=== PATIENT | female | born 1955 | race Caucasian/White ===

== ENCOUNTER 2016-10-31 10:21 | Inpatient (IN) | payer OTHER ==
[~2016-10-31] VITALS: Ht 165.1 cm; Wt 72.6 kg
--- NOTE | 2016-10-31 10:27 | ED DYSPNEA/ASTHMA COMPLAINT ---
See Addendum History of Present Illness General Chief Complaint: Dyspnea (COPD, CHF, Other) Stated Complaint: BIBA SOB Source: patient, old records, EMS Exam Limitations: no limitations Vital Signs & Intake/Output Vital Signs & Intake/Output Vital Signs Date Time Temp Pulse Resp B/P Pulse O2 O2 Flow FiO2 Ox Delivery Rate 10/31 1319 91 Nasal 4.0L Cannula 10/31 1207 98.4 100 19 135/69 91 Nasal 5.0L Cannula 10/31 1145 90 Nasal 6.0L Cannula 10/31 1024 98.3 110 18 153/65 88 Room Air Allergies Coded Allergies: Penicillins (Severe, RASH 10/31/16) Triage Nurses Notes Reviewed? yes HPI: PATIENT PRESNETS WITH INCREASING SOB AND SHORT. PT DENIES CHEST PAIN OR TIGHTNESS. NO FEVERS OR CHILLS. POSITIVE ANOREXIA, NO NAUSEA OR VOMITING, PRODUCTIVE COUGH WITH YELLOW SPUTUM. PT HAS COPD AND CONTINUES TO SMOKE. PATIENT HAS NEVER BEEN ADMITTED FOR CODP IN THE PAST. PATIENT DENIES ANY PAIN. UPON EMS ARRIVAL PT HAD A RA SAT OF 89%. PT GIVEN A DOUNEB AND THEN AN ALBUTEROL NEB. Past History Travel History Traveled to [place] past 21 day No Medical History Any Pertinent Medical History? 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 No Review of Systems Review of Systems Constitutional: Reports: see HPI, weakness. EENTM: Reports: no symptoms. Respiratory: Reports: see HPI, cough, short of breath, sputum production, wheezing. Cardiovascular: Reports: no symptoms. GI: Reports: no symptoms. Genitourinary: Reports: no symptoms. Musculoskeletal: Reports: no symptoms. Skin: Reports: no symptoms. Neurological/Psychological: Reports: no symptoms. Hematologic/Endocrine: Reports: no symptoms. Immunologic/Allergic: Reports: no symptoms. All Other Systems: Reviewed and Negative Physical Exam Physical Exam General Appearance: well developed/nourished, alert, awake, anxious, moderate distress Head: atraumatic, normal appearance Eyes: Bilateral: PERRL, EOMI. Ears, Nose, Throat: normal pharynx, normal ENT inspection, hearing grossly normal Neck: normal inspection, supple, full range of motion, NO JVD Respiratory: decreased breath sounds, respiratory distress Cardiovascular: regular rate/rhythm, normal peripheral pulses Gastrointestinal: normal bowel sounds, soft, non-tender Extremities: normal inspection, normal capillary refill, normal range of motion, no edema Neurologic/Psych: no motor/sensory deficits, awake, alert, oriented x 3, normal mood/affect Skin: intact, normal color, warm/dry Lymphatic: no anterior cervical hung Core Measures ACS in differential dx? No Severe Sepsis Present: No Septic Shock Present: No Progress Differential Diagnosis: asthma, AMI, bronchitis, CHF, COPD, pulmonary embolism, pneumonia, pneumothorax Plan of Care: Orders Procedure Date/time Status Admit to inpatient 10/31 1326 Active AEROSOL (GEN) 10/31 1214 Complete RAPID VIRAL INFLUENZA A 10/31 1028 Complete Telemetry/Library Science Professor 10/31 1026 Active BLOOD CULTURE 10/31 1026 Active URINALYSIS 10/31 1026 Active TROPONIN LEVEL 10/31 1026 Complete COMPREHENSIVE METABOLIC PANEL 10/31 1026 Complete CBC WITHOUT DIFFERENTIAL 10/31 1026 Complete EKG 10/31 1026 Active ARTERIAL BLOOD GAS (GEN) 10/31 1023 Complete Laboratory Tests 10/31/16 1115: Anion Gap 11, Estimated GFR > 60, BUN/Creatinine Ratio 18.6, Glucose 97, Calcium 9.4, Total Bilirubin 0.4, AST 18, ALT 24, Alkaline Phosphatase 86, Troponin I < 0.01, Total Protein 7.4, Albumin 4.2, Globulin 3.2, Albumin/Globulin Ratio 1.3, CBC w Diff NO MAN DIFF REQ, RBC 5.56 H, MCV 77.7 L, MCH 25.1 L, RDW 17.3 H, MPV 10.6 H, Gran % 79.7 H, Lymphocytes % 11.1 L, Monocytes % 8.8, Eosinophils % 0.1, Basophils % 0.3, Absolute Granulocytes 6.8 H, Absolute Lymphocytes 1.0 L, Absolute Monocytes 0.8 H, Absolute Eosinophils 0, Absolute Basophils 0, PUBS MCHC 32.3 L 10/31/16 1050: Bicarbonate Actual 22, Mixed VBG pH 7.42 H, Mixed VBG pCO2 34 L, Mixed VBG O2 Saturation 42, Carboxyhemoglobin 2.2, O2 Concentration % RA, Phlebotomy Draw Site RIGHT RADIAL Microbiology 10/31 1115 BLOOD: Blood Culture - RECD 10/31 1046 BLOOD: Blood Culture - RECD 10/31 1025 NASOPHARYN: Influenza Virus A & B Rapid Smear - COMP Diagnostic Imaging: Viewed by Me: Radiology Read. Discussed w/RAD: Radiology Read. CXR Impression: PATIENT: JAMES SUNG PRESENT AGE: 61 PATIENT ACCOUNT NO: [id number] : 59 LOCATION: [facility], [place] ORDERING PHYSICIAN: EDUARDO SAMUELS MD SERVICE DATE: 10/31/16 EXAM TYPE: RAD - XRY- PORTABLE CHEST XRAY EXAMINATION: XR PORTABLE CHEST CLINICAL INFORMATION: Shortness of breath. Evaluate for pneumonia. COMPARISON: Chest x-ray dated 02/07. TECHNIQUE: Portable AP semierect view of the chest was obtained. FINDINGS : The cardiomediastinal silhouette is within normal limits in size. Lungs bilaterally are symmetrically mildly hyperinflated. Slight thickening of the central airways and increased reticular opacities extending into the lung bases as seen, consistent with reactive airways disease/bronchitis and associated linear subsegmental atelectasis in the right lung base, possibly related to mucous plugging. Evolving pneumonia especially in the medial right lung base cannot be excluded and close clinical correlation and follow-up will be required. No effusion or pneumothorax is seen. Bony structures are unremarkable. IMPRESSION: Findings suspicious for bronchitis with linear subsegmental atelectasis in the right lung base, possibly related to mucous plugging. However , close clinical correlation and follow-up chest x-ray is recommended to exclude evolving pneumonia in the medial right lung base. DICTATED BY: SAGE HOLGUIN MD DATE/TIME DICTATED:10/31/161218 VESSEL CREW MEMBER:YARIEL DATE/TIME TRANSCRIBED:10/31/161218 CONFIDENTIAL, DO NOT COPY WITHOUT APPROPRIATE AUTHORIZATION. <Electronically signed in Other Vendor System> SIGNED BY: SAGE HOLGUIN MD 10/31/16 1227 Initial ED EKG: SR WITH ST DEPRESSIONS LATERALLY, NEW SINCE 2006. Prior EKG: changed Rhythm Strip: normal sinus rhythm Departure Departure Disposition: STILL A PATIENT Condition: Guarded Clinical Impression Primary Impression: COPD exacerbation Referrals: Nicole MCKENNA MD Departure Forms: Customer Survey General Discharge Information Admission Note Spoke With: TARAS BARRETT,BRIONNA Dodson Documentation of Exam: Documentation of any treatments & extenuating circumstances including Concerns Regarding Discharge (functional status, medication knowledge or non-compliance, living conditions, etc.) that warrant an admission rather than observation: [IV STEROIDS, ANTIBIOTICS, PULM CONSULT] Critical Care Note Critical Care Note Critical Care Time: non-applicable
[2016-10-31 11:33] LABS: ABSOLUTE BASOPHIL COUNT 0 /CUMM (0.0-0.2); ABSOLUTE EOSINOPHIL COUNT 0 /CUMM (0.0-0.7); ABSOLUTE GRANULOCYTE CT 6.8 /CUMM (1.4-6.5); ABSOLUTE MONOCYTE COUNT 0.8 /CUMM (0.10-0.60); BASOPHIL % 0.3 % (0.0-2.0); EOSINOPHIL % 0.1 % (0-5); GRANULOCYTE % 79.7 % (42.2-75.2); HEMATOCRIT 43.2 % (37-47); MEAN CORPUSCULAR HGB 25.1 PG (27.0-31.0); MEAN CORPUSCULAR HGB CONC 32.3 G/DL (33.0-37.0); MEAN CORPUSCULAR VOLUME 77.7 FL (81.0-99.0); MEAN PLATELET VOLUME 10.6 FL (7.4-10.4); PLATELET COUNT 208 /CUMM (130-400); RBC DISTRIBUTION WIDTH 17.3 % (11.5-14.5); RED BLOOD CELL CT 5.56 /CUMM (4.20-5.40); WHITE BLOOD CELL COUNT 8.6 /CUMM (4.8-10.8)
--- NOTE | 2016-10-31 12:27 | RADIOLOGY REPORT ---
EXAMINATION: XR PORTABLE CHEST CLINICAL INFORMATION: Shortness of breath. Evaluate for pneumonia. COMPARISON: Chest x-ray dated 02/07/2007. TECHNIQUE: Portable AP semierect view of the chest was obtained. FINDINGS: The cardiomediastinal silhouette is within normal limits in size. Lungs bilaterally are symmetrically mildly hyperinflated. Slight thickening of the central airways and increased reticular opacities extending into the lung bases as seen, consistent with reactive airways disease/bronchitis and associated linear subsegmental atelectasis in the right lung base, possibly related to mucous plugging. Evolving pneumonia especially in the medial right lung base cannot be excluded and close clinical correlation and follow-up will be required. No effusion or pneumothorax is seen. Bony structures are unremarkable. IMPRESSION: Findings suspicious for bronchitis with linear subsegmental atelectasis in the right lung base, possibly related to mucous plugging. However, close clinical correlation and follow-up chest x-ray is recommended to exclude evolving pneumonia in the medial right lung base.
--- NOTE | 2016-10-31 13:30 | History & Physical ---
MARYELLEN GU 10/31/16 1330: General Information and HPI MD Statement: I have seen and personally examined JAMES ROACH and documented this H&P. The patient is a 61 year old F who presented with a patient stated chief complaint of [new onset shortness of breath and cough]. Source of Information: patient Exam Limitations: no limitations History of Present Illness: Mrs Roach is a 61-year-old lady with a PMH of COPD currently on Stiolto 2 puffs QAM, psoriatic arthritis on 7 mg prednisone and Humira every other week, chronic tobacco use at 1 pack per day who presents with complaints of new onset shortness of breath. She reports feeling slightly short of breath late last night prior to going to bed which persisted throughout the night requiring her to sleep upright to relieve the symptoms. This morning she woke up with a sensation of an inability to catch her breath. She endorses sick contacts with family members with URTI symptoms over the past week. She denies any chest pain, palpitations, fevers, chills, dizziness, nausea, abdominal pain, discomfort with urination. Patient does endorse a previous episode of COPD exacerbation last year with similar presentation. Allergies/Medications Allergies: Coded Allergies: Penicillins (Severe, RASH 10/31/16) Home Med list Adalimumab (Humira Pen) 40 MG/0.8 ML PEN.IJ.KIT 40 JOINT PAIN (Reported) Prednisone 5 MG TABLET 7.5 BREATHING PROBLEMS (Reported) Tiotropium Br/Olodaterol HCl (Stiolto Respimat Inhal Dexter) 2.5 MCG-2.5 MCG/ ACTUATION MIST.INHAL 2.5 BREATHING PROBLEMS (Reported) Past History Travel History Traveled to [place] past 21 day No Medical History Neurological: NONE EENT: NONE Cardiovascular: NONE Respiratory: emphysema Gastrointestinal: NONE Hepatic: NONE Renal: NONE Musculoskeletal: psoariatic arthritis Psychiatric: NONE Endocrine: NONE Blood Disorders: NONE 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 EENTM: Reports: no symptoms. Cardiovascular: Reports: see HPI. Respiratory: Reports: see HPI. GI: Reports: no symptoms. Genitourinary: Reports: no symptoms. Musculoskeletal: Reports: no symptoms. Skin: Reports: no symptoms. Exam & Diagnostic Data Last 24 Hrs of Vital Signs/I&O Vital Signs Date Time Temp Pulse Resp B/P Pulse O2 O2 Flow FiO2 Ox Delivery Rate 10/31 1447 98.8 85 19 119/54 91 Nasal 5.0L Cannula 10/31 1319 91 Nasal 4.0L Cannula 10/31 1207 98.4 100 19 135/69 91 Nasal 5.0L Cannula 10/31 1145 90 Nasal 6.0L Cannula 10/31 1024 98.3 110 18 153/65 88 Room Air Intake & Output 10/31 1600 10/31 0800 10/31 0000 Intake Total 250 Output Total Balance 250 Intake, IV 250 Patient 160 lb Weight Physical Exam General Appearance Alert, Cooperative, No Acute Distress Skin Superficial abrasion on the right cheek from chronic dry skin HEENT EOMI, Mucous Membr. moist/pink, No pharyngeal erythema or exudate Lymphatic Cervical nl Cardiovascular Regular Rate, Normal S1, Normal S2 Lungs Normal Air Movement, Diffusely diminished breath sounds Abdomen Normal Bowel Sounds, Soft, No Tenderness Neurological Normal Speech Extremities No Edema, Normal Pulses Vascular Pulses Symmetrical Last 24 Hrs of Labs/Yosi: Laboratory Tests 10/31/16 1340: Urinalysis LIGHT H, Urine Color YEL, Urine Clarity HAZY H, Urine pH 6.0, Ur Specific Dawson 1.025, Urine Protein TRACE H, Urine Ketones NEG, Urine Nitrite NEG, Urine Bilirubin NEG, Urine Urobilinogen 0.2, Ur Leukocyte Esterase MOD H, Ur Microscopic SEDIMENT EXAMINED, Urine WBC 25-50 H, Ur Epithelial Cells MANY H, Urine Hemoglobin NEG, Urine Glucose NEG 10/31/16 1115: Anion Gap 11, Estimated GFR > 60, BUN/Creatinine Ratio 18.6, Glucose 97, Calcium 9.4, Total Bilirubin 0.4, AST 18, ALT 24, Alkaline Phosphatase 86, Troponin I < 0.01, Total Protein 7.4, Albumin 4.2, Globulin 3.2, Albumin/Globulin Ratio 1.3, CBC w Diff NO MAN DIFF REQ, RBC 5.56 H, MCV 77.7 L, MCH 25.1 L, RDW 17.3 H, MPV 10.6 H, Gran % 79.7 H, Lymphocytes % 11.1 L, Monocytes % 8.8, Eosinophils % 0.1, Basophils % 0.3, Absolute Granulocytes 6.8 H, Absolute Lymphocytes 1.0 L, Absolute Monocytes 0.8 H, Absolute Eosinophils 0, Absolute Basophils 0, PUBS MCHC 32.3 L 10/31/16 1050: Bicarbonate Actual 22, Mixed VBG pH 7.42 H, Mixed VBG pCO2 34 L, Mixed VBG O2 Saturation 42, Carboxyhemoglobin 2.2, O2 Concentration % RA, Phlebotomy Draw Site RIGHT RADIAL Microbiology 10/31 1453 URINE ROUT: Legionella Antigen - ORD 10/31 1453 URINE ROUT: Streptococcus pneumoniae Antigen (M - ORD 10/31 1115 BLOOD: Blood Culture - RECD 10/31 1046 BLOOD: Blood Culture - RECD 10/31 1025 NASOPHARYN: Influenza Virus A & B Rapid Smear - COMP Diagnostic Data EKG Results Sinus rhythm, HR 99 BPM. AR interval 124. QTC 452 CXR Results Findings suspicious for bronchitis with linear subsegmental atelectasis in the right lung base, possibly related to mucous plugging. However, close clinical correlation and follow-up chest x-ray is recommended to exclude evolving pneumonia in the medial right lung base. Assessment/Plan Assessment: Mrs Roach is a 61-year-old lady with a PMH of COPD currently on Stiolto 2 puffs QAM, psoriatic arthritis on 7 mg prednisone and Humira every other week, chronic tobacco use at 1 pack per day who presents with complaints of new onset shortness of breath. VS on admission: BP 153/65, HR 110, RR 18, SPO2 88% on RA corrected to 91% on 6 LNC Pertinent labs: WBC 8.6, H&H 13.9/43.2, platelets 208, potassium 4.1, BUN/CR 13/ 0.5, glucose 97 ABG: PH 7.42, PCO2 34 Flu test: Negative Problem list: 1. COPD exacerbation 2. Acute hypoxemia 3. Tobacco dependence 4. Reactive arthritis Plan: * We'll admit to general medicine for management of COPD exacerbation. We'll start the patient on IV azithromycin 500 mg for 3-4 days, IV Solu-Medrol with gradual taper with clinical improvement, TRCs with nebulizer therapy * In the setting of profound hypoxia, not previously on home O2, will consider workup for PE. * Follow-up magnesium, phosphorus * EKG with no evidence of ST-T changes. Repeat EKG/troponin at 6 PM to rule out underlying cardiac pathology * Infectious disease standpoint, follow-up urine strep and Legionella antigens * DVT prophylaxis: Lovenox * CODE STATUS: DNR/DNI AM TEAM: * CXR with evidence of subsegmental atelectasis of right lung base. DDX of mucus plugging. Follow-up for interval improvement with chest physiotherapy ( Acapella treatment) * Obtain pulmonology consult * Consider CT chest to better assess lung parenchyma with her history of chronic tobacco use As Ranked By This Provider Problem List: 1. COPD exacerbation 2. Tobacco dependence 3. Hypoxia 4. Psoriatic arthritis Core Measures/Miscellaneous Acute Coronary Syndrome ACS Diagnosis: No Cerebrovascular Accident CVA/TIA Diagnosis: No Congestive Heart Failure CHF Diagnosis: No Venous Thromboembolism VTE Risk Factors: Age > 40 VTE Prophylaxis Ordered Inpt: Pharm- Lovenox No Mech VTE prophylaxis d/t: No contraindications No VTE Pharm Prophylaxis d/t: No contraindications VTE Diagnosis: No VTE Type: NONE VTE Confirmed by (Test): NONE Severe Sepsis Severe Sepsis Present: No Septic Shock Septic Shock Present: No Miscellaneous Documentation Attending Case Discussed With: TARAS BARRETT,BRIONNA Dodson Primary Care Physician: PREET UKMAR MD Patient sees these Specialists Rheumatologuy Level of Patient Care: General Medicine Resident Review Statement Resident Statement: examined this patient, discussed with architecture intern, agreed with architecture intern, reviewed EMR data (avail), discussed with nursing, reviewed images BRIONNA GRAJEDA MD 10/31/16 1640: Attending Review Statement Attending Statement Attending MD Statement: examined this patient, discuss w/resident/PA/ENTRY LEVEL ACCOUNTING CLERK, agreed w/resident/PA/ENTRY LEVEL ACCOUNTING CLERK, reviewed EMR data (avail), discussed with nursing, discussed with case mgmt, reviewed images Attending Assessment/Plan: 61-year-old female with past medical history of emphysema, active tobacco use not on home oxygen at baseline, psoriatic arthritis on chronic prednisone and Humira who is here with what appears to be an acute COPD exacerbation with acute hypoxemic respiratory failure. Her sat is 83% on room air now up to 91-92% on 5 -6 L. She got IV Solu-Medrol and azithromycin in the ER. The chest x-ray is not very impressive for pneumonia but given the degree of hypoxemia obviously PE is in the consideration. She is in mild respiratory distress and sitting up right now, although she is talking and mentating well. So for now we'll give her therapeutic dose Lovenox of 1 mg per KG subcutaneous twice a day given that she is guaiac negative. She does have a chronic microcytic anemia and will have to watch the crit closely. When she is more stable will get the CTA. I spoke to the respiratory therapist at length. We don't have an arterial blood gas because the ER couldn't get so they got a mixed venous, she's not acidemic and her pH on the mixed venous gas is 7.43. She is extremely claustrophobic and won't even keep a Ventimask on and just wants a nasal cannula so the respiratory therapist is saying even if I do get the blood gas she's not permitting me to use BiPAP. At this point will have to watch her respiratory status closely with IV steroids antibiotics TRC with nebs and empiric treatment for PE. Will also call pulmonary for consult and closely follow-up. Her flu swab was negative.
[2016-10-31] MEDS ORDERED: STIOLTO RESPIMAT4 GM INH (14:52)
[2016-10-31] MEDS ORDERED: HUMIRA PEN40 MG/0.8 IV (14:54)
[2016-10-31] MEDS ORDERED: PREDNISONE5 M1 PO (14:55)
[2016-10-31 16:30] VITALS: BP 137/68
--- NOTE | 2016-10-31 16:48 | Admission Certification ---
Admission Certification Certification Statement - As attending physician, I certify that at the time of - admission, based on clinical presentation, severity of - symptoms, need for further diagnostic testing and - therapeutic interventions, and risk of adverse outcomes - without in-hospital treatment, in my clinical assessment, - this patient requires an acute hospital stay for a minimum - of two nights or longer. I have also considered psychsocial - factors such as support system, advanced age, financial - issues, cognitive issues, and failed out-patient treatments, - past re-admission history, safety of patient, and lack of - compliance as applicable. Specific rationale supporting this admission is: Acute COPD exacerbation with acute hypoxemic respiratory failure.
--- NOTE | 2016-10-31 19:06 | Event Note ---
Event Note Event Note: Situation: * Planned CTA to rule out PE Brief: * The patient presented with acute onset profound hypoxia * We ordered a CTA of the chest but unfortunately the patient was unable to tolerate the procedure due to anxiety/claustrophobia * In the interim time, based on the risk/benefit assessment, we opted to start the patient on Lovenox 80 mg Q12 therapeutic dose in the event of positive PE * Based on her current respiratory status and DNR/DNI CODE STATUS, we opted not to administer anxiolytic which could potentially exacerbate her hypoxia at this time in the evening A/P: * We have reordered the CTA chest for the morning * Based on her oxygen requirements and respiratory status in the am, consider 0.25 Xanax at that time after discussing risks/benefits with the patient and utility of CTA chest with further management of her care
[2016-11-01 01:16] VITALS: BP 132/54
[2016-11-01 08:17] VITALS: BP 128/54
--- NOTE | 2016-11-01 08:22 | PN- Housestaff ---
SIOBHAN BARRETT,[facility] 11/01/16 0821: Subjective Follow-up For: new onset shortness of breath and cough Subjective: I saw and examined the patient this am, she is sitting in bed alert and oriented , appears SOB, is on 6L O2, reports coughing but no phlegm. denies chest pain, palpitation, abdominal pain, dizziness. Reports she felt sick whole day on Wednesday and could not sleep overnight, started to have SOB and used inhalers which did not work for her. On Wednesday morning decided to come to the ED as symptoms were worsening. Review of Systems Constitutional: Denies: chills, fever, weakness. EENTM: Reports: no symptoms. Cardiovascular: Reports: no symptoms. Respiratory: Reports: cough, short of breath. Denies: sputum production. Gastrointestinal: Denies: abdominal pain, changes in stool. Genitourinary: Reports: no symptoms. Musculoskeletal: Reports: no symptoms. Skin: Reports: no symptoms. Neurological/Psychological: Reports: no symptoms. Objective Last 24 Hrs of Vital Signs/I&O Vital Signs Date Time Temp Pulse Resp B/P Pulse O2 O2 Flow FiO2 Ox Delivery Rate 11/01 0834 93 Nasal 6.0L Cannula 11/01 0817 97.7 78 20 128/54 92 Nasal 6.0L Cannula 11/01 0800 92 Nasal 6.0L Cannula 11/01 0116 98.3 81 20 132/54 92 Nasal Cannula 11/01 0000 Nasal 6.0L Cannula 10/31 2122 Nasal 6.0L Cannula 10/31 1630 98.0 89 20 137/68 90 Nasal 5.0L Cannula 10/31 1507 92 Nasal 6.0L Cannula 10/31 1447 98.8 85 19 119/54 91 Nasal 5.0L Cannula 10/31 1319 91 Nasal 4.0L Cannula Intake & Output 11/01 1600 11/01 0800 11/01 0000 Intake Total 600 Output Total 850 400 Balance -850 200 Intake, Oral 600 Output, Urine 850 400 Physical Exam General Appearance: Alert, Oriented X3, Cooperative, No Acute Distress Skin: No Rashes, No Breakdown, No Significant Lesion HEENT: Atraumatic, EOMI Neck: Supple, No JVD Cardiovascular: Regular Rate, Normal S1, Normal S2, No Murmurs Lungs: decreased air movement, significantly decreased breath sounds, end expiratory wheezing, uses accessory muscles Abdomen: Soft, No Tenderness Neurological: Normal Speech, Normal Tone Extremities: No Edema, Normal Pulses Vascular: Pulses Symmetrical Current Medications: Current Medications Sig/Mark Start time Last Medication Dose Route Stop Time Status Admin Acetaminophen 0 .STK-MED ONE 10/31 1219 DC PO Albuterol Sulfate 3 ML EVERY 4 HRS/AWAKE 11/01 0800 AC 11/01 INH 0828 Azithromycin 500 MG DAILY 11/01 1000 AC 11/01 Dextrose/Water 250 ML IV 11/03 1059 1005 Enoxaparin Sodium 80 MG Q12H 10/31 1700 AC 11/01 SC 0501 Enoxaparin Sodium 40 MG DAILY 10/31 1503 DC SC Guaifenesin/Codeine 10 ML ONCE ONE 10/31 1630 DC 10/31 Phosphate PO 10/31 1631 1628 Guaifenesin/ 10 ML Q6P PRN 11/01 0500 AC 11/01 Dextromethorphan PO 0500 Ibuprofen 600 MG Q6P PRN 10/31 1445 AC PO Ipratropium [place] 2.5 ML EVERY 4 HRS/AWAKE 11/01 0800 AC 11/01 INH 0828 Methylprednisolone 40 MG Q12 10/31 2200 DC IV Methylprednisolone 40 MG Q6 10/31 1800 AC 11/01 IV 1137 Nicotine 14 MG DAILY 11/01 1000 AC 11/01 TOP 1004 Oxycodone HCl 10 MG Q6P PRN 10/31 1445 AC PO Oxycodone/ 1 TAB Q6P PRN 10/31 1445 AC Acetaminophen PO Patient Medication 1 UNIT ONE NR 10/31 1515 NH Teaching ED 10/31 1530 Last 24 Hrs of Lab/Yosi Results Last 24 Hrs of Labs/Mics: Laboratory Tests 11/01/16 0620: Anion Gap 13, Estimated GFR > 60, BUN/Creatinine Ratio 21.7, Phosphorus 3.7, Magnesium 2.2, D-Dimer 255 H, CBC w Diff MAN DIFF ORDERED, RBC 5.46 H, MCV 78.1 L, MCH 24.8 L, RDW 17.2 H, MPV 10.6 H, Gran % 84.0 H, Lymphocytes % 10.2 L, Monocytes % 5.7, Eosinophils % 0.1, Basophils % 0 L, Absolute Granulocytes 6.3, Segmented Neutrophils 75, Band Neutrophils 9 H, Absolute Lymphocytes 0.8 L, Lymphocytes 14 L, Monocytes 2, Absolute Monocytes 0.4, Absolute Eosinophils 0, Absolute Basophils 0, Platelet Estimate VERIFIED BY SMEAR, Anisocytosis 1+, PUBS MCHC 31.7 L 10/31/16 1800: Troponin I < 0.01 10/31/16 1340: Urinalysis LIGHT H, Urine Color YEL, Urine Clarity HAZY H, Urine pH 6.0, Ur Specific [place] 1.025, Urine Protein TRACE H, Urine Ketones NEG, Urine Nitrite NEG, Urine Bilirubin NEG, Urine Urobilinogen 0.2, Ur Leukocyte Esterase MOD H, Ur Microscopic SEDIMENT EXAMINED, Urine WBC 25-50 H, Ur Epithelial Cells MANY H, Urine Hemoglobin NEG, Urine Glucose NEG Microbiology 10/31 1339 URINE ROUT: Legionella Antigen - COMP 10/31 1339 URINE ROUT: Streptococcus pneumoniae Antigen (M - COMP Assessment/Plan Assessment: Mrs Roach is a 61-year-old lady with a PMH of COPD currently on Stiolto 2 puffs QAM, psoriatic arthritis on 7 mg prednisone and Humira every other week, chronic tobacco use at 1 pack per day who presents with complaints of new onset shortness of breath. VS on admission: BP 153/65, HR 110, RR 18, SPO2 88% on RA corrected to 91% on 6 LNC Pertinent labs: WBC 8.6, H&H 13.9/43.2, platelets 208, potassium 4.1, BUN/CR 13/ 0.5, glucose 97 ABG: PH 7.42, PCO2 34 Flu test: Negative Problem list: 1. COPD exacerbation 2. Acute hypoxemia 3. Tobacco dependence 4. Reactive arthritis Plan: * Pulmonary on board, follow recommendations * Continue IV azithromycin 500 mg , IV Solu-Medrol with gradual taper with clinical improvement, TRCs with nebulizer therapy * Rule out PE: Patient has been unable to go for CTA due to claustrophobic. In the setting of profound hypoxia, not previously on home O2, will consider workup for PE. We already started anticoagulation with Lovenox * Follow up doppler US LEs * Follow-up magnesium, phosphorus * EKG with no evidence of ST-T changes, will obtain ECHO and follow results, will consider consult cardio based on the results. * Infectious disease standpoint, follow-up urine strep and Legionella antigens * DVT prophylaxis: Lovenox * CODE STATUS: DNR/DNI Problem List: 1. COPD exacerbation 2. Hypoxia Pain Ratin Pain Location: no pain Pain Goal: Pain 4 or less Pain Plan: mild pain pathway Tomorrow's Labs & Rationales: CBC(PNA), BEP(monitor electrolytes) RBIONNA GRAJEDA MD 11/01/16 0953: Attending MD Review Statement Attending Statement Attending MD Statement: examined this patient, discuss w/resident/PA/B[employer] FEEDER, agreed w/resident/PA/B[employer] FEEDER, reviewed EMR data (avail), discussed with nursing, discussed with case mgmt, reviewed images Attending Assessment/Plan: Patient is asking when she can leave for home. I tried explaining at length that she has an acute COPD exacerbation with acute hypoxemic respiratory failure and her sat is 91-92% on 6 L. We are treating her with IV Solu-Medrol and azithromycin for COPD exacerbation. Given the degree of hypoxemia we wanted to do a CTA to rule out PE but she is extremely claustrophobic and cannot do it. Right now we have her on therapeutic dose Lovenox for presumed PE. Given the low d-dimer, the active tobacco use I think this is all COPD. I think we need a pulmonary consult to help us out and we should be able to safely stop the Lovenox if they feel the same way. Tobacco cessation counseled at length. She is chronically steroid dependent because of her psoriatic arthritis. She will likely need oxygen on discharge and will follow closely.
[2016-11-01 08:40] LABS: ABSOLUTE BASOPHIL COUNT 0 /CUMM (0.0-0.2); ABSOLUTE EOSINOPHIL COUNT 0 /CUMM (0.0-0.7); ABSOLUTE GRANULOCYTE CT 6.3 /CUMM (1.4-6.5); ABSOLUTE LYMPH COUNT 0.8 /CUMM (1.2-3.4); ABSOLUTE MONOCYTE COUNT 0.4 /CUMM (0.10-0.60); BASOPHIL % 0 % (0.0-2.0); EOSINOPHIL % 0.1 % (0-5); HEMATOCRIT 42.7 % (37-47); MEAN CORPUSCULAR HGB 24.8 PG (27.0-31.0); MEAN CORPUSCULAR HGB CONC 31.7 G/DL (33.0-37.0); MEAN CORPUSCULAR VOLUME 78.1 FL (81.0-99.0); MEAN PLATELET VOLUME 10.6 FL (7.4-10.4); PLATELET COUNT 211 /CUMM (130-400); RBC DISTRIBUTION WIDTH 17.2 % (11.5-14.5); RED BLOOD CELL CT 5.46 /CUMM (4.20-5.40); WHITE BLOOD CELL COUNT 7.5 /CUMM (4.8-10.8)
--- NOTE | 2016-11-01 13:47 | Cons- Pulmonary ---
General Information and HPI Consulting Request Date of Consult: 11/01/16 Requested By: Dr. Elliott Reason for Consult: Hypoxemic respiratory failure COPD exacerbation Source of Information: patient Exam Limitations: no limitations History of Present Illness: Consultation for hypoxemic respiratory failure and acute exacerbation of COPD. 61 year old woman. She carries a diagnosis of COPD and has seen Dr. Townsend ( cotton opener in [place]) previously. She has had PFTs and CT chest per patient (results currently unavailable). She claims she was diagnosed with lung nodules and emphysema. She is not on home oxygen. She was prescribed Stiolto ( LABA/LAMA) and bronchodilator therapy. She also has psoriatric arthritis without rash for which she is on prednisone 7.5mg daily and Humira. She is an active smoker and has smoked for 47 years ( since the age of 14). Currently steady smoking at about 1 PPD. Her sister of emphysema at the age of 60. Patient was in her usual state of health until about Thurs/Fri when she began to experience body aches, fatigue and dyspnea with wheezing. This was after she took her 2 year old grandson to the geographic information systems manager for URI like symptoms, her daughter has been ill as well with URI like illness. During hospitalization the patient was started on solumedrol, nebulized therapy, zithromax. She also required o2 therapy when it was noted that her oxygen saturation was in the 80's requiring o2 supplementation. CXR suspicious for bronchitis/segmental atelectasis right lung base. Venous dopplers are negative. D-dimer was 255 which is very minimally elevated She feels better overall since admission, however her o2 requirements are still at 6 Liters. She is wheezing and has a cough along with bronchospasm. Allergies/Medications Allergies: Coded Allergies: Penicillins (Severe, RASH 10/31/16) Home Med List: Adalimumab (Humira Pen) 40 MG/0.8 ML PEN.IJ.KIT 40 JOINT PAIN (Reported) Prednisone 5 MG TABLET 7.5 BREATHING PROBLEMS (Reported) Tiotropium Br/Olodaterol HCl (Stiolto Respimat Inhal [place]) 2.5 MCG-2.5 MCG/ ACTUATION MIST.INHAL 2.5 BREATHING PROBLEMS (Reported) Current Medications: Current Medications Sig/Mark Start time Last Medication Dose Route Stop Time Status Admin Albuterol Sulfate 3 ML EVERY 4 HRS/AWAKE 11/01 0800 AC 11/01 INH 1345 Azithromycin 250 MG DAILY 11/02 1000 AC PO Azithromycin 500 MG DAILY 11/01 1000 DC 11/01 Dextrose/Water 250 ML IV 11/03 1059 1005 Enoxaparin Sodium 80 MG Q12H 10/31 1700 AC 11/01 SC 0501 Enoxaparin Sodium 40 MG DAILY 10/31 1503 DC SC Guaifenesin 10 ML .STK-MED ONE 11/01 0455 DC PO 11/01 0456 Guaifenesin/Codeine 10 ML ONCE ONE 10/31 1630 DC 10/31 Phosphate PO 10/31 1631 1628 Guaifenesin/ 10 ML Q6P PRN 11/01 0500 AC 11/01 Dextromethorphan PO 0500 Ibuprofen 600 MG Q6P PRN 10/31 1445 AC PO Ipratropium [place] 2.5 ML EVERY 4 HRS/AWAKE 11/01 0800 AC 11/01 INH 1345 Methylprednisolone 40 MG Q12 10/31 2200 DC IV Methylprednisolone 40 MG Q6 10/31 1800 AC 11/01 IV 1137 Nicotine 14 MG DAILY 11/01 1000 AC 11/01 TOP 1004 Oxycodone HCl 10 MG Q6P PRN 10/31 1445 AC PO Oxycodone/ 1 TAB Q6P PRN 10/31 1445 AC Acetaminophen PO Patient Medication 1 UNIT ONE NR 10/31 1515 DC Teaching ED 10/31 1530 Review of Systems Comments 18 point Review of Systems performed. Positive and negative pertinent findings are deliniated in the HPI. Otherwise the ROS is negative. Past History Travel History Traveled to [place] past 21 day No Medical History Blood Transfusion Hx: No Neurological: NONE EENT: NONE Cardiovascular: NONE Respiratory: emphysema Gastrointestinal: NONE Hepatic: NONE Renal: NONE Musculoskeletal: psoariatic arthritis Psychiatric: NONE Endocrine: NONE Blood Disorders: NONE Cancer(s): NONE MANAGER OF HOUSEKEEPING/Reproductive: NONE Surgical History Surgical History: non-contributory Family History Relations & Conditions If Any: SISTER, . Psychosocial History Where Do You Live? Home Services at Home: None Smoking Status: Current Everyday Smoker ETOH Use: denies use Illicit Drug Use: denies illicit drug use Exam & Diagnostic Data Last 24 Hrs of Vital Signs/I&O Vital Signs Date Time Temp Pulse Resp B/P Pulse O2 O2 Flow FiO2 Ox Delivery Rate 11/01 0834 93 Nasal 6.0L Cannula 11/01 0817 97.7 78 20 128/54 92 Nasal 6.0L Cannula 11/01 0800 92 Nasal 6.0L Cannula 11/01 0116 98.3 81 20 132/54 92 Nasal Cannula 11/01 0000 Nasal 6.0L Cannula 10/31 2121 Nasal 6.0L Cannula 10/31 1630 98.0 89 20 137/68 90 Nasal 5.0L Cannula Intake & Output 11/01 1600 11/01 0800 11/01 0000 Intake Total 1150 600 Output Total 750 850 400 Balance 400 -850 200 Intake, IV 250 Intake, Oral 900 600 Number 0 Bowel Movements Output, Urine 750 850 400 Physical Exam Other Physical Findings: gen - awake and alert, speaks in full sentences, mild respiratory distress heent - ncat cvs - s1, s2 lungs - scattered inspiratory and expiratory wheezes with forceful exhalation triggers a coughing spell, prolonged end expiratory phase abd - soft, bs+ ext - without edema Last 48 Hrs of Labs/Yosi: Laboratory Tests 11/01/16 0620: Anion Gap 13, Estimated GFR > 60, BUN/Creatinine Ratio 21.7, Phosphorus 3.7, Magnesium 2.2, D-Dimer 255 H, CBC w Diff MAN DIFF ORDERED, RBC 5.46 H, MCV 78.1 L, MCH 24.8 L, RDW 17.2 H, MPV 10.6 H, Gran % 84.0 H, Lymphocytes % 10.2 L, Monocytes % 5.7, Eosinophils % 0.1, Basophils % 0 L, Absolute Granulocytes 6.3, Segmented Neutrophils 75, Band Neutrophils 9 H, Absolute Lymphocytes 0.8 L, Lymphocytes 14 L, Monocytes 2, Absolute Monocytes 0.4, Absolute Eosinophils 0, Absolute Basophils 0, Platelet Estimate VERIFIED BY SMEAR, Anisocytosis 1+, PUBS MCHC 31.7 L 10/31/16 1800: Troponin I < 0.01 10/31/16 1340: Urinalysis LIGHT H, Urine Color YEL, Urine Clarity HAZY H, Urine pH 6.0, Ur Specific [place] 1.025, Urine Protein TRACE H, Urine Ketones NEG, Urine Nitrite NEG, Urine Bilirubin NEG, Urine Urobilinogen 0.2, Ur Leukocyte Esterase MOD H, Ur Microscopic SEDIMENT EXAMINED, Urine WBC 25-50 H, Ur Epithelial Cells MANY H, Urine Hemoglobin NEG, Urine Glucose NEG 10/31/16 1115: Anion Gap 11, Estimated GFR > 60, BUN/Creatinine Ratio 18.6, Glucose 97, Calcium 9.4, Phosphorus 3.7, Magnesium 2.0, Total Bilirubin 0.4, AST 18, ALT 24, Alkaline Phosphatase 86, Troponin I < 0.01, Total Protein 7.4, Albumin 4.2, Globulin 3.2, Albumin/Globulin Ratio 1.3, CBC w Diff NO MAN DIFF REQ, RBC 5.56 H, MCV 77.7 L, MCH 25.1 L, RDW 17.3 H, MPV 10.6 H, Gran % 79.7 H, Lymphocytes % 11.1 L, Monocytes % 8.8, Eosinophils % 0.1, Basophils % 0.3, Absolute Granulocytes 6.8 H, Absolute Lymphocytes 1.0 L, Absolute Monocytes 0.8 H, Absolute Eosinophils 0, Absolute Basophils 0, PUBS MCHC 32.3 L 10/31/16 1050: Bicarbonate Actual 22, Mixed VBG pH 7.42 H, Mixed VBG pCO2 34 L, Mixed VBG O2 Saturation 42, Carboxyhemoglobin 2.2, O2 Concentration % RA, Phlebotomy Draw Site RIGHT RADIAL Microbiology 10/31 1340 URINE ROUT: Legionella Antigen - COMP 10/31 1340 URINE ROUT: Streptococcus pneumoniae Antigen (M - COMP 10/31 1025 NASOPHARYN: Influenza Virus A & B Rapid Smear - COMP Assessment/Plan Impression/Plan: Consultation for hypoxemic respiratory failure and acute exacerbation of COPD. 61 year old woman. She carries a diagnosis of COPD and has seen Dr. Townsend ( cotton opener in [place]) previously. She has had PFTs and CT chest per patient (results currently unavailable). She claims she was diagnosed with lung nodules and emphysema. She is not on home oxygen. She was prescribed Stiolto ( LABA/LAMA) and bronchodilator therapy. She also has psoriatric arthritis without rash for which she is on prednisone 7.5mg daily and Humira. She is an active smoker and has smoked for 47 years ( since the age of 14). Currently steady smoking at about 1 PPD. Her sister of emphysema at the age of 60. Patient was in her usual state of health until about Thurs/Fri when she began to experience body aches, fatigue and dyspnea with wheezing. This was after she took her 2 year old grandson to the geographic information systems manager for URI like symptoms, her daughter has been ill as well with URI like illness. During hospitalization the patient was started on solumedrol, nebulized therapy, zithromax. She also required o2 therapy when it was noted that her oxygen saturation was in the 80's requiring o2 supplementation. CXR suspicious for bronchitis/segmental atelectasis right lung base. Venous dopplers are negative. D-dimer was 255 which is very minimally elevated She feels better overall since admission, however her o2 requirements are still at 6 Liters. She is wheezing and has a cough along with bronchospasm. Impression 61 year old woman - Acute exacerbation of COPD/underlying emphysema accompanied with hypoxemic respiratory failure requiring oxygen supplementation, this is likely secondary to a recent URI/bronchitis illness - pulmonary nodules per patient - ?psoriatic involvement - questionable VTE Plan - obtain records from the offic of Dr. Ruben Solomon tomorrow - specifically last note, CT chest, PFTs - continue solumedrol at this time, monitor finger sticks - TRC/Nebs - Zithromax for a duration of 5 days - mucinex - the presentation is consistent with an exacerbation of COPD as mentioned above , however a VTE diagnosis was entertained as well, the D-dimer is minimally elevated. The index of suspicion is relative low and dopplers are negative, an ECHO was performed and will be evaluated. The patient decliens CTA testing given significant claustrophobia even is anxiolysis was provided. Due to the inability to check at this time we can opt for 2 options, given low index of suspicion after ECHO and records from Dr. Solomon obtained will consider to make an informed decision with the patient to discontinue anti-coagulation, we can also consider a V/Q scan, however the patient may decline that as well. - please obtain CXR PA/Lateral if possible in am - smoking cessation/counseled - DVT prophylaxis at all times (currently on Lovenox) Consult Acknowledgment - Thank you for your consult request.
--- NOTE | 2016-11-01 13:55 | ULTRASOUND REPORT ---
EXAMINATION: US TRIPLEX LOWER EXTREMITY, BILATERAL CLINICAL INFORMATION: Acute hypoxia. COMPARISON: None TECHNIQUE: Color-flow triplex imaging with spectral analysis and compression Doppler were performed on the bilateral lower extremities. FINDINGS: Respiratory variation, normal compression and augmented flow are noted throughout the bilateral lower extremities. The visualized common femoral vein, superficial femoral vein, profunda femoral vein, popliteal vein and midcalf peroneal and posterior tibial venous segments show no evidence of deep venous thrombosis. There is no Harden's cyst. IMPRESSION: Normal triplex scan without evidence of deep venous thrombosis involving the bilateral lower extremities.
[2016-11-01 16:28] VITALS: BP 149/75
[2016-11-01 23:42] VITALS: BP 140/70
--- NOTE | 2016-11-02 07:19 | PN- Housestaff ---
See Addendum Subjective Follow-up For: new onset shortness of breath and cough Subjective: I saw and examined the patient this am, she feels improvement in breathing compared to yesterday, still requiring 6L through NC, patient also could not sleep well last night and attributes it to the steroids she is taking. Review of Systems Constitutional: Denies: chills, fever. EENTM: Reports: no symptoms. Cardiovascular: Denies: chest pain, palpitations, peripheral edema. Respiratory: Reports: cough, short of breath, wheezing. Denies: sputum production. Gastrointestinal: Denies: abdominal pain, changes in stool. Genitourinary: Reports: no symptoms. Musculoskeletal: Reports: no symptoms. Skin: Reports: no symptoms. Neurological/Psychological: Reports: no symptoms. Objective Last 24 Hrs of Vital Signs/I&O Vital Signs Date Time Temp Pulse Resp B/P Pulse O2 O2 Flow FiO2 Ox Delivery Rate 11/02 0851 94 Nasal 6.0L Cannula 11/02 0834 97.5 98 20 134/60 93 Nasal 5.0L Cannula 11/02 0436 93 Nasal 6.0L Cannula 11/02 0000 Nasal 6.0L Cannula 11/01 2342 97.6 103 20 140/70 95 Nasal 5.0L Cannula 11/01 1810 94 Nasal 6.0L Cannula 11/01 1628 97.8 105 21 149/75 92 Nasal 6.0L Cannula 11/01 1600 Nasal 6.0L Cannula Intake & Output 11/02 1600 11/02 0800 11/02 0000 Intake Total 240 900 Output Total 700 Balance 240 200 Intake, Oral 240 900 Number 1 Bowel Movements Output, Urine 700 Physical Exam General Appearance: Alert, Oriented X3, Cooperative, Mild Distress Skin: No Rashes, No Breakdown, No Significant Lesion HEENT: Atraumatic, EOMI Neck: Supple Cardiovascular: Normal S1, Normal S2, No Murmurs Lungs: decreased breath sounds bilaterally and end expiratory wheezing diffuse and bilateral Abdomen: Soft, No Tenderness Neurological: Normal Speech, Normal Tone Extremities: No Edema, Normal Pulses Vascular: Pulses Symmetrical Current Medications: Current Medications Sig/Mark Start time Last Medication Dose Route Stop Time Status Admin Albuterol Sulfate 3 ML EVERY 4 HRS/AWAKE 11/01 0800 AC 11/02 INH 0846 Azithromycin 250 MG DAILY 11/02 1000 AC PO Azithromycin 500 MG DAILY 11/01 1000 DC 11/01 Dextrose/Water 250 ML IV 11/03 1059 1005 Enoxaparin Sodium 80 MG Q12H 10/31 1700 AC 11/02 SC 0511 Guaifenesin/Codeine 10 ML .STK-MED ONE 11/01 2059 DC Phosphate PO 11/01 2100 Guaifenesin/ 10 ML Q6P PRN 11/01 0500 AC 11/01 Dextromethorphan PO 2105 Ibuprofen 600 MG Q6P PRN 10/31 1445 AC PO Ipratropium [place] 2.5 ML EVERY 4 HRS/AWAKE 11/01 0800 AC 11/02 INH 0846 Melatonin 5 MG AT BEDTIME 11/02 0230 AC 11/02 PO 0237 Methylprednisolone 40 MG Q6 10/31 1800 AC 11/02 IV 0511 Nicotine 14 MG DAILY 11/01 1000 AC 11/01 TOP 1004 Oxycodone HCl 10 MG Q6P PRN 10/31 1445 AC PO Oxycodone/ 1 TAB Q6P PRN 10/31 1445 AC Acetaminophen PO Last 24 Hrs of Lab/Yosi Results Last 24 Hrs of Labs/Mics: Laboratory Tests 11/02/16 0708: Anion Gap 8, Estimated GFR > 60, BUN/Creatinine Ratio 25.0, CBC w Diff NO MAN DIFF REQ, RBC 5.23, MCV 78.1 L, MCH 24.6 L, RDW 16.8 H, MPV 10.6 H, Gran % 90.9 H, Lymphocytes % 5.0 L, Monocytes % 3.9, Eosinophils % 0, Basophils % 0.2 , Absolute Granulocytes 14.7 H, Absolute Lymphocytes 0.8 L, Absolute Monocytes 0.6, Absolute Eosinophils 0, Absolute Basophils 0, PUBS MCHC 31.4 L Assessment/Plan Assessment: Mrs Roach is a 61-year-old lady with a PMH of COPD currently on Stiolto 2 puffs QAM, psoriatic arthritis on 7 mg prednisone and Humira every other week, chronic tobacco use at 1 pack per day who presents with complaints of new onset shortness of breath. reported sick contacts and feeling unwell for a day before SOB started. VS on admission: BP 153/65, HR 110, RR 18, SPO2 88% on RA corrected to 91% on 6 LNC Pertinent labs: WBC 8.6, H&H 13.9/43.2, platelets 208, potassium 4.1, BUN/CR 13/ 0.5, glucose 97 ABG: PH 7.42, PCO2 34 Flu test: Negative Problem list: 1. COPD exacerbation 2. Acute hypoxemia 3. Tobacco dependence 4. Psoriatic arthritis 5. Social issues at home (her is an alcoholic and the patient is afraid of him coming back to the house after she gets discharged to home). Plan: * Pulmonary on board, followed recommendations * Continue azithromycin 500 mg to complete 5 days, 40 mg IV Solu-Medrol with gradual taper (will change to Q8 from Q6) with clinical improvement, TRCs with nebulizer therapy. Will taper off O2 with goal of 88% per pulmonary, no need to keep O2 saturation high. She is chronically desaturated and due to severe COPD and low DLCO, O2 therapy will not improve oxygenation. She is not on O2 at home. * Low suspicion for PE considering only slightly elevated, patient's very severe emphysema at baseline and (based on records from Dr. Townsend office) and recent sick contacts at home, patient is most likely. Doppler US LEs negative for DVT, EKG with no evidence of ST-T changes, ECHO shows mild TR and MR , EF>65 %. Urine strep and Legionella antigens (-) * We did smoking cessation sounseling, also emphasized that patient should not be around people who smoke, apparently her daughter smokes (we told her that passive smoking will also worsen her respiratory status.) * Obtained social work consult with Tayla regarding difficulties at home due to her 's alsoholism, will follow * DVT prophylaxis: ALPS. DC'd Lovenox as patient had nose bleeds today. * CODE STATUS: DNR/DNI Problem List: 1. Tobacco dependence 2. Hypoxia 3. COPD exacerbation 4. Psoriatic arthritis Pain Ratin Pain Location: no pain Pain Goal: Pain 4 or less Pain Plan: mild pain pathway Tomorrow's Labs & Rationales: CBC (leukocytosis)
[2016-11-02 07:58] LABS: ABSOLUTE BASOPHIL COUNT 0 /CUMM (0.0-0.2); ABSOLUTE EOSINOPHIL COUNT 0 /CUMM (0.0-0.7); ABSOLUTE GRANULOCYTE CT 14.7 /CUMM (1.4-6.5); ABSOLUTE LYMPH COUNT 0.8 /CUMM (1.2-3.4); ABSOLUTE MONOCYTE COUNT 0.6 /CUMM (0.10-0.60); BASOPHIL % 0.2 % (0.0-2.0); EOSINOPHIL % 0 % (0-5); HEMATOCRIT 40.8 % (37-47); MEAN CORPUSCULAR HGB 24.6 PG (27.0-31.0); MEAN CORPUSCULAR HGB CONC 31.4 G/DL (33.0-37.0); MEAN CORPUSCULAR VOLUME 78.1 FL (81.0-99.0); MEAN PLATELET VOLUME 10.6 FL (7.4-10.4); PLATELET COUNT 227 /CUMM (130-400); RBC DISTRIBUTION WIDTH 16.8 % (11.5-14.5); RED BLOOD CELL CT 5.23 /CUMM (4.20-5.40)
[2016-11-02 08:08] LABS: WHITE BLOOD CELL COUNT 16.2 /CUMM (4.8-10.8)
[2016-11-02 08:34] VITALS: BP 134/60
--- NOTE | 2016-11-02 08:41 | PN- Student ---
Subjective Subjective: 61 y.o. female seen and examined at bedside. Pt reports she feels her breathing has improved. She was only able to sleep a few hours last night but was able to lay flat comfortably. Continues to have occasional cough productive of yellow sputum. She would like to get OOB today. Good appetite, tolerating regular diet. Urinating spontaneouly, last BM was yesterday and reports it was normal for her. ROS: General: neg fever/chills Neuro: headache, visual changes Cardiac: chest pain, palpitations Lungs: pos SOB, productive cough (see HPI) GI: neg abdominal pain, nausea/vomiting, diarhea/constipation : neg dysuria MSK: neg edema, joint pain, muscle aches Objective Objective: General: sitting up in bed, mild respiratory distress with some accessory muscle use, no acute distress Cardiac: S1 and S2 heard, RRR, no M/R/G Lungs: bilateral expiratory wheezes MSK: no LE edema, calves soft and nontender, pedal pulses 2+ bilaterally Psych: awake and alert, appropriate and cooperative Results Results: Laboratory Tests 11/02/16 0708: Sodium Pending, Potassium Pending, Chloride Pending, Carbon Dioxide Pending, Anion Gap Pending, BUN Pending, Creatinine Pending, BUN/Creatinine Ratio Pending , CBC w Diff Pending, WBC Pending, RBC Pending, Hgb Pending, Hct Pending, MCV Pending, MCH Pending, RDW Pending, Plt Count Pending, MPV Pending, Gran % Pending, Lymphocytes % Pending, Monocytes % Pending, Eosinophils % Pending, Basophils % Pending, Absolute Granulocytes Pending, Absolute Lymphocytes Pending , Absolute Monocytes Pending, Absolute Eosinophils Pending, Absolute Basophils Pending, PUBS MCHC Pending 11/01/16 0620: Anion Gap 13, Estimated GFR > 60, BUN/Creatinine Ratio 21.7, Phosphorus 3.7, Magnesium 2.2, D-Dimer 255 H, CBC w Diff MAN DIFF ORDERED, RBC 5.46 H, MCV 78.1 L, MCH 24.8 L, RDW 17.2 H, MPV 10.6 H, Gran % 84.0 H, Lymphocytes % 10.2 L, Monocytes % 5.7, Eosinophils % 0.1, Basophils % 0 L, Absolute Granulocytes 6.3, Segmented Neutrophils 75, Band Neutrophils 9 H, Absolute Lymphocytes 0.8 L, Lymphocytes 14 L, Monocytes 2, Absolute Monocytes 0.4, Absolute Eosinophils 0, Absolute Basophils 0, Platelet Estimate VERIFIED BY SMEAR, Anisocytosis 1+, PUBS MCHC 31.7 L 10/31/16 1800: Troponin I < 0.01 10/31/16 1340: Urinalysis LIGHT H, Urine Color YEL, Urine Clarity HAZY H, Urine pH 6.0, Ur Specific [place] 1.025, Urine Protein TRACE H, Urine Ketones NEG, Urine Nitrite NEG, Urine Bilirubin NEG, Urine Urobilinogen 0.2, Ur Leukocyte Esterase MOD H, Ur Microscopic SEDIMENT EXAMINED, Urine WBC 25-50 H, Ur Epithelial Cells MANY H, Urine Hemoglobin NEG, Urine Glucose NEG 10/31/16 1115: Anion Gap 11, Estimated GFR > 60, BUN/Creatinine Ratio 18.6, Glucose 97, Calcium 9.4, Phosphorus 3.7, Magnesium 2.0, Total Bilirubin 0.4, AST 18, ALT 24, Alkaline Phosphatase 86, Troponin I < 0.01, Total Protein 7.4, Albumin 4.2, Globulin 3.2, Albumin/Globulin Ratio 1.3, CBC w Diff NO MAN DIFF REQ, RBC 5.56 H, MCV 77.7 L, MCH 25.1 L, RDW 17.3 H, MPV 10.6 H, Gran % 79.7 H, Lymphocytes % 11.1 L, Monocytes % 8.8, Eosinophils % 0.1, Basophils % 0.3, Absolute Granulocytes 6.8 H, Absolute Lymphocytes 1.0 L, Absolute Monocytes 0.8 H, Absolute Eosinophils 0, Absolute Basophils 0, PUBS MCHC 32.3 L 10/31/16 1050: Bicarbonate Actual 22, Mixed VBG pH 7.42 H, Mixed VBG pCO2 34 L, Mixed VBG O2 Saturation 42, Carboxyhemoglobin 2.2, O2 Concentration % RA, Phlebotomy Draw Site RIGHT RADIAL Microbiology 10/31 1339 URINE ROUT: Legionella Antigen - COMP 10/31 1339 URINE ROUT: Streptococcus pneumoniae Antigen (M - COMP 10/31 1115 BLOOD: Blood Culture - RES 10/31 1046 BLOOD: Blood Culture - RES 10/31 1025 NASOPHARYN: Influenza Virus A & B Rapid Smear - COMP Assessment/Plan Assessment: 61 y.o. female pack per day cigarette smoker h/o COPD and psoriatic arthritis admitted with COPD exacerbation currently improving but requiring 6L of O2 through nasal cannula. Diagnosis of PE was considered, work-up showed neg LE venous doppler, d dimer mildly elevated at 255, pt declined CTA due to significant claustrophobia. 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 Solomon for last note, CT chest, and PFTs
[2016-11-02 08:45] LABS: GRANULOCYTE % 90.9 % (42.2-75.2)
--- NOTE | 2016-11-02 09:42 | ECHOCARDIOGRAM REPORT ---
JAMES SUNG Age: 61 : 1955 Gender: F Exam Date: 11/01/2016 13:59 Exam Location: [address] [place] [address] Ht (in): 65 Wt (lb): 160 BSA: 1.84 BP: 128 / 54 Ordering Physician: MARYELLEN GU MD Referring Physician: MARYELLEN GU MD Technologist: Debra Solano [facility] Room Number: 204-01 Indications: SHORTNESS OF BREATH Rhythm: Technical Quality: Fair FINDINGS Left Ventricle Left ventricular cavity size normal. Normal left ventricular wall thickness. No obvious regional wall motion abnormalities. Left ventricular ejection fraction is estimated at > 65 %. Normal left ventricular diastolic filling pattern for age. Right Ventricle Normal right ventricular size and function. Right Atrium Normal right atrial size. Left Atrium Normal left atrial size. Mitral Valve Mild mitral annular calcification. No mitral stenosis. Trace mitral regurgitation. Aortic Valve Trileaflet aortic valve. No aortic stenosis. Aortic sclerosis. Tricuspid Valve Structurally normal tricuspid valve. Trace tricuspid regurgitation. Unable to estimate the right ventricular systolic pressure. Pulmonic Valve Pulmonic valve not well visualized, grossly normal. Pericardium Minimal pericardial effusion. Great Vessels Normal size aortic root. CONCLUSIONS Left ventricular cavity size normal. Normal left ventricular wall thickness. No obvious regional wall motion abnormalities. Left ventricular ejection fraction is estimated at > 65 %. Normal left ventricular diastolic filling pattern for age. Normal right ventricular size and function. Unable to estimate the right ventricular systolic pressure. Minimal pericardial effusion. Kenn Espinoza M.D. (Electronically Signed) Final Date: 02 November 2016 09:41 MEASUREMENTS (Male / Female) Normal Values 2D ECHO LV Diastolic Diameter PLAX 3.3 cm 4.2 - 5.9 / 3.9 - 5.3 cm LV Systolic Diameter PLAX 1.9 cm 2.1 - 4.0 cm LV Fractional Shortening PLAX 42.4 % 25 - 46 % LV Ejection Fraction 2D Teich 74.7 % IVS Diastolic Thickness 0.8 cm LVPW Diastolic Thickness 0.8 cm LV Relative Wall Thickness 0.5 RV Internal Dim ED PLAX 2.9 cm 1.9 - 3.8 cm LVOT Diameter 1.8 cm Aortic Root Diameter 2.8 cm LA Systolic Diameter LX 3.4 cm 3.0 - 4.0 / 2.7 - 3.8 cm LA Volume 18.0 cm 18 - 58 / 22 - 52 cm DOPPLER AV Peak Velocity 177.0 cm/s AV Peak Gradient 12.5 mmHg AV Mean Velocity 116.0 cm/s AV Mean Gradient 6.0 mmHg AV Velocity Time Integral 35.6 cm LVOT Peak Velocity 150.0 cm/s LVOT Peak Gradient 9.0 mmHg LVOT Mean Velocity 99.9 cm/s LVOT Mean Gradient 5.0 mmHg LVOT Velocity Time Integral 28.9 cm LVOT Stroke Volume 73.5 cm AV Area Cont Eq vti 2.1 cm AV Area Cont Eq pk 2.2 cm MV Peak Velocity 119.0 cm/s MV Peak Gradient 5.7 mmHg MV Mean Velocity 71.2 cm/s MV Mean Gradient 2.0 mmHg Mitral E Point Velocity 90.3 cm/s Mitral A Point Velocity 75.5 cm/s Mitral E to A Ratio 1.2 MV PHT Velocity 119.0 cm/s MV Deceleration [place] 577.0 cm/s MV Pressure Half Time 61.9 ms MV Area PHT 3.6 cm MV Deceleration Time 238.0 ms PV Peak Velocity 130.0 cm/s PV Peak Gradient 6.8 mmHg PV Mean Velocity 89.6 cm/s PV Mean Gradient 4.0 mmHg PV Velocity Time Integral 29.0 cm LV E' Lateral Velocity 12.0 cm/s Mitral E to LV E' Lateral Ratio 7.5 LV E' Septal Velocity 9.1 cm/s Mitral E to LV E' Septal Ratio 10.0
--- NOTE | 2016-11-02 10:39 | PN- Pulmonary ---
Subjective HPI/Critical Care Issues: pt seen and examined feels dyspneic with exertion no new events no n/v/d/c dry cough Objective Current Medications: Current Medications Sig/Mark Start time Last Medication Dose Route Stop Time Status Admin Albuterol Sulfate 3 ML EVERY 4 HRS/AWAKE 11/01 0800 AC 11/02 INH 0846 Azithromycin 250 MG DAILY 11/02 1000 AC 11/02 PO 1008 Azithromycin 500 MG DAILY 11/01 1000 DC 11/01 Dextrose/Water 250 ML IV 11/03 1059 1005 Enoxaparin Sodium 80 MG Q12H 10/31 1700 DC 11/02 SC 0511 Guaifenesin/Codeine 10 ML .STK-MED ONE 11/01 2059 DC Phosphate PO 11/01 2100 Guaifenesin/ 10 ML Q6P PRN 11/01 0500 AC 11/01 Dextromethorphan PO 2105 Ibuprofen 600 MG Q6P PRN 10/31 1445 AC PO Ipratropium [place] 2.5 ML EVERY 4 HRS/AWAKE 11/01 0800 AC 11/02 INH 0846 Melatonin 5 MG AT BEDTIME 11/02 0230 AC 11/02 PO 0237 Methylprednisolone 40 MG Q6 10/31 1800 AC 11/02 IV 0511 Nicotine 14 MG DAILY 11/01 1000 AC 11/02 TOP 1008 Oxycodone HCl 10 MG Q6P PRN 10/31 1445 AC PO Oxycodone/ 1 TAB Q6P PRN 10/31 1445 AC Acetaminophen PO Vital Signs & I&O Last 24 Hrs of Vitals and I&O: Vital Signs Date Time Temp Pulse Resp B/P Pulse O2 O2 Flow FiO2 Ox Delivery Rate 11/02 0851 94 Nasal 6.0L Cannula 11/02 0834 97.5 98 20 134/60 93 Nasal 5.0L Cannula 11/02 0800 94 Nasal 6.0L Cannula 11/02 0436 93 Nasal 6.0L Cannula 11/02 0000 Nasal 6.0L Cannula 11/01 2342 97.6 103 20 140/70 95 Nasal 5.0L Cannula 11/01 1810 94 Nasal 6.0L Cannula 11/01 1628 97.8 105 21 149/75 92 Nasal 6.0L Cannula 11/01 1600 Nasal 6.0L Cannula Intake & Output 11/02 1600 11/02 0800 11/02 0000 Intake Total 240 900 Output Total 700 Balance 240 200 Intake, Oral 240 900 Number 1 Bowel Movements Output, Urine 700 Exam Other Physical Findings: gen - awake and alert, speaks in full sentences, mild respiratory distress heent - ncat cvs - s1, s2 lungs - scattered inspiratory and expiratory wheezes with forceful exhalation, prolonged end expiratory phase abd - soft, bs+ ext - without edema Results Last 24 Hrs of Lab Results: Laboratory Tests 11/02/16 0708: Anion Gap 8, Estimated GFR > 60, BUN/Creatinine Ratio 25.0, CBC w Diff NO MAN DIFF REQ, RBC 5.23, MCV 78.1 L, MCH 24.6 L, RDW 16.8 H, MPV 10.6 H, Gran % 90.9 H, Lymphocytes % 5.0 L, Monocytes % 3.9, Eosinophils % 0, Basophils % 0.2 , Absolute Granulocytes 14.7 H, Absolute Lymphocytes 0.8 L, Absolute Monocytes 0.6, Absolute Eosinophils 0, Absolute Basophils 0, PUBS MCHC 31.4 L Impression/Plan Impression/Plan Impression/Plan: Impression 61 year old woman - Acute exacerbation of COPD/underlying emphysema accompanied with hypoxemic respiratory failure requiring oxygen supplementation, this is likely secondary to a recent URI/bronchitis illness - pulmonary nodules per patient - ?psoriatic involvement - very low suspicion for VTE - very severe emphysema Plan - continue solumedrol at this time, monitor finger sticks - TRC/Nebs - Zithromax for a duration of 5 days - mucinex - very low suspicion of VTE, would stop a/c, pt declines testing - smoking cessation/counseled - check [id number] - DVT prophylaxis at all times - once a/c d/c, begin prophylactic lovenox
[2016-11-02 15:44] VITALS: BP 150/78
--- NOTE | 2016-11-02 15:45 | RADIOLOGY REPORT ---
EXAMINATION: XR CHEST CLINICAL INFORMATION: Worsening shortness of breath. COMPARISON: 10/31/2016 TECHNIQUE: 2 views of the chest were obtained. FINDINGS: Lungs are hyperexpanded with increased AP dimension of the chest; this suggests possibility of pulmonary emphysema. Again, the airway mason appear thickened within lower lobes. There are abnormal streaky, peribronchial opacities in each lower lobe. This likely represents atelectasis associated with bronchitis. No pleural effusion. Cardiac silhouette is normal in size. The mediastinal and hilar contours are normal. Thoracic aorta is calcified. No acute osseous findings. IMPRESSION: Probable active bronchitis and peribronchial streaky opacities of atelectasis in the lower lobes. Overall, no significant interval change in appearance of the chest compared to 10/31/2016.
[2016-11-03 01:01] VITALS: BP 137/67
--- NOTE | 2016-11-03 07:01 | PN- Housestaff ---
Subjective Follow-up For: shortness of breath and cough Subjective: patient reports improvement in her SOB today, reports more coughing since this am but did nt require any nebulizer treatment overnight. no other complaints. Review of Systems Constitutional: Denies: chills, fever, weakness. EENTM: Reports: no symptoms. Cardiovascular: Reports: no symptoms. Respiratory: Reports: cough, sputum production. Denies: short of breath. Gastrointestinal: Reports: no symptoms. Genitourinary: Reports: no symptoms. Musculoskeletal: Reports: no symptoms. Skin: Reports: no symptoms. Neurological/Psychological: Reports: no symptoms. Hematologic/Endocrine: Reports: no symptoms. Objective Last 24 Hrs of Vital Signs/I&O Vital Signs Date Time Temp Pulse Resp B/P Pulse O2 O2 Flow FiO2 Ox Delivery Rate 11/03 1652 97.5 92 16 140/86 95 Nasal 2.0L Cannula 11/03 0827 20 90 Nasal 3.0L Cannula 11/03 0800 93 Nasal 5.0L Cannula 11/03 0800 96.3 70 20 151/71 93 Nasal 5.0L Cannula 11/03 0731 93 Nasal 5.0L Cannula 11/03 0101 98.3 90 20 137/67 98 Nasal Cannula 11/03 0000 Nasal 5.0L Cannula Intake & Output 11/03 1600 11/03 0800 11/03 0000 Intake Total 224 245 4070 Output Total 1000 300 600 Balance -80 60 400 Intake, IV 20 Intake, Oral 010 887 1925 Number 1 1 Bowel Movements Output, Urine 1000 300 600 Physical Exam General Appearance: Alert, Oriented X3, Cooperative, No Acute Distress Skin: No Rashes, No Breakdown, No Significant Lesion HEENT: Atraumatic, EOMI Neck: Supple Cardiovascular: Normal S1, Normal S2, No Murmurs Lungs: end expiratory wheezing, low breath sounds Abdomen: Normal Bowel Sounds, Soft, No Tenderness Neurological: Normal Speech, Strength at 5/5 X4 Ext, Normal Tone, Sensation Intact Extremities: No Edema, Normal Pulses Vascular: Pulses Symmetrical Current Medications: Current Medications Sig/Mark Start time Last Medication Dose Route Stop Time Status Admin Albuterol Sulfate 3 ML EVERY 4 HRS/AWAKE 11/01 0800 AC 11/03 INH 1717 Azithromycin 500 MG DAILY@1700 11/03 1700 AC 11/03 Dextrose/Water 250 ML IV 11/04 1759 1711 Azithromycin 500 MG DAILY 11/02 1345 DC 11/02 Dextrose/Water 250 ML IV 11/04 1059 1718 Guaifenesin/ 10 ML Q6P PRN 11/01 0500 AC 11/02 Dextromethorphan PO 2131 Ibuprofen 600 MG Q6P PRN 10/31 1445 AC 11/03 PO 1140 Ipratropium [place] 2.5 ML EVERY 4 HRS/AWAKE 11/01 0800 AC 11/03 INH 1718 Melatonin 5 MG AT BEDTIME 11/02 0230 AC 11/02 PO 2103 Methylprednisolone 40 MG Q12H 11/03 1800 CAN IV Methylprednisolone 40 MG Q12 11/03 1000 DC IV Methylprednisolone 40 MG Q8 11/02 1400 DC 11/03 IV 0552 Nicotine 14 MG DAILY 11/01 1000 AC 11/03 TOP 1002 Oxycodone HCl 10 MG Q6P PRN 10/31 1445 AC PO Oxycodone/ 1 TAB Q6P PRN 10/31 1445 AC Acetaminophen PO Prednisone 60 MG DAILY 11/03 1000 AC 11/03 PO 11/05 1001 1133 Last 24 Hrs of Lab/[place] Results Last 24 Hrs of Labs/Mics: Laboratory Tests 11/03/16 0632: CBC w Diff NO MAN DIFF REQ, RBC 5.02, MCV 78.6 L, MCH 25.0 L, RDW 17.7 H, MPV 10.6 H, Gran % 84.7 H, Lymphocytes % 10.5 L, Monocytes % 4.8, Eosinophils % 0 , Basophils % 0 L, Absolute Granulocytes 12.2 H, Absolute Lymphocytes 1.5, Absolute Monocytes 0.7 H, Absolute Eosinophils 0, Absolute Basophils 0, PUBS MCHC 31.8 L Assessment/Plan Assessment: Mrs Roach is a 61-year-old lady with a PMH of COPD currently on Stiolto 2 puffs QAM, psoriatic arthritis on 7 mg prednisone and Humira every other week, chronic tobacco use at 1 pack per day who presents with complaints of new onset shortness of breath. reported sick contacts and feeling unwell for a day before SOB started. VS on admission: BP 153/65, HR 110, RR 18, SPO2 88% on RA corrected to 91% on 6 LNC Pertinent labs: WBC 8.6, H&H 13.9/43.2, platelets 208, potassium 4.1, BUN/CR 13/ 0.5, glucose 97 ABG: PH 7.42, PCO2 34 Flu test: Negative Problem list: 1. COPD exacerbation 2. Acute hypoxemia 3. Tobacco dependence 4. Psoriatic arthritis 5. Social issues at home (her is an alcoholic and the patient is afraid of him coming back to the house after she gets discharged to home). Plan: * Pulmonary on board, followed recommendations * Continue azithromycin 500 mg to complete 5 days, stopped 40 mg IV Solu-Medrol, started prednisne with gradual taper of prednisone with clinical improvement, TRCs with nebulizer therapy. Will taper off O2 with goal of 88-90% per pulmonary , no need to keep O2 saturation high. She is chronically desaturated and due to severe COPD and low DLCO, O2 therapy will not improve oxygenation. She is not on O2 at home. * Low suspicion for PE considering only slightly elevated, patient's very severe emphysema at baseline and (based on records from Dr. Townsend office) and recent sick contacts at home, patient is most likely. Doppler US LEs negative for DVT, EKG with no evidence of ST-T changes, ECHO shows mild TR and MR , EF>65 %. Urine strep and Legionella antigens (-) * We did smoking cessation sounseling, also emphasized that patient should not be around people who smoke, apparently her daughter smokes (we told her that passive smoking will also worsen her respiratory status.) * Sent a1 antitrysin level, will follow * Obtained social work consult with Tayla regarding difficulties at home due to her 's alsoholism. * DVT prophylaxis: ALPS. DC'd Lovenox as patient had nose bleeds today. * CODE STATUS: DNR/DNI Problem List: 1. Hypoxia 2. Tobacco dependence 3. Psoriatic arthritis 4. COPD exacerbation Pain Ratin Pain Location: no pain Pain Goal: Pain 4 or less Pain Plan: mild pp Tomorrow's Labs & Rationales: CBC (leukocytosis)
[2016-11-03 07:55] LABS: ABSOLUTE BASOPHIL COUNT 0 /CUMM (0.0-0.2); ABSOLUTE EOSINOPHIL COUNT 0 /CUMM (0.0-0.7); ABSOLUTE GRANULOCYTE CT 12.2 /CUMM (1.4-6.5); ABSOLUTE LYMPH COUNT 1.5 /CUMM (1.2-3.4); ABSOLUTE MONOCYTE COUNT 0.7 /CUMM (0.10-0.60); BASOPHIL % 0 % (0.0-2.0); EOSINOPHIL % 0 % (0-5); GRANULOCYTE % 84.7 % (42.2-75.2); HEMATOCRIT 39.5 % (37-47); MEAN CORPUSCULAR HGB CONC 31.8 G/DL (33.0-37.0); MEAN CORPUSCULAR VOLUME 78.6 FL (81.0-99.0); MEAN PLATELET VOLUME 10.6 FL (7.4-10.4); PLATELET COUNT 222 /CUMM (130-400); RBC DISTRIBUTION WIDTH 17.7 % (11.5-14.5); RED BLOOD CELL CT 5.02 /CUMM (4.20-5.40); WHITE BLOOD CELL COUNT 14.4 /CUMM (4.8-10.8)
[2016-11-03 08:00] VITALS: BP 151/71
[2016-11-03] MEDS ORDERED: AZITHROMYCIN500 M3 PO (09:40)
[2016-11-03] MEDS ORDERED: NICOTINE PATCH1 EAC2 TOP (09:42)
--- NOTE | 2016-11-03 09:45 | Patient Discharge Instructions ---
Discharge Instructions General Discharge Information You were seen/treated for: COPD exacerbation Special Instructions: 1. Please note that we have started you on lipid lowering medication for heart health, please be advised that one possible side effect is muscle pain, if severe pain occurs please stop the medications and follow up with PCP. You will also need to be screened for liver function test while on statin, please follow up with PCP about it. 2. Please follow instructions on tapering steroid dose, you will continue home dose after the taper. 3. Please follow up with Pulmonary Dr. Sam within a week of discharge 4. Please follow up with your PCP within a week 5. Refrain from smoking 6. Come back to the ED if symptoms recur Diet Continue normal diet: Yes Recommended Diet: Heart Healthy Activity Activity Self Limited: Yes Acute Coronary Syndrome Inclusion Criteria At DC or during hospital stay patient has or had the following: ACS DIAGNOSIS No Discharge Core Measures Meds if any: Prescribed or Continued at Discharge Meds if any: NOT Prescribed or Continued at Discharge Congestive Heart Failure Inclusion Criteria At DC or during hospital stay patient has or had the following: CHF DIAGNOSIS No Discharge Core Measures Meds if any: Prescribed or Continued at Discharge Meds if any: NOT Prescribed or Continued at Discharge Cerebrovascular accident Inclusion Criteria At DC or during hospital stay patient has or had the following: CVA/TIA Diagnosis No Discharge Core Measures Meds if any: Prescribed or Continued at Discharge Meds if any: NOT Prescribed or Continued at Discharge Venous thromboembolism Inclusion Criteria VTE Diagnosis No VTE Type NONE VTE Confirmed by (Test) NONE Discharge Core Measures - Per Current guidelines, there needs to be overlap - treatment for the first 5 days of Warfarin therapy. - If discharged on Warfarin prior to 5 days of - overlap therapy, the patient will need to be - assessed for post discharge needs including - *Post discharge parental anticoagulation - *Warfarin and/or parental anticoagulation education - *Follow up date to check INR post discharge At least 5 days overlap therapy as Inpatient No Meds if any: Prescribed or Continued at Discharge Note: Overlap Therapy is Warfarin and Anticoagulant Meds if any: NOT Prescribed or Continued at Discharge
--- NOTE | 2016-11-03 10:00 | Discharge Summary ---
Visit Information Visit Dates Admission Date: 10/31/16 Discharge Date: 11/05/16 Hospital Course Course Attending Physician: YOUSUF BARRETT,TREVA Villegas Primary Care Physician: STACY BARRETT,PREET Hillman Consulting Request: Consulting Specialty: Pulmonary Disease Consulting Physician: Dr. Sam Hospital Course: Mrs Roach is a 61-year-old lady with PMH of COPD currently on Stiolto and psoriatic arthritis on prednisone and Humira. She is also a chronic tobacco user at 1 pack per day. She presented with complaints of new onset shortness of breath and feeling unwell for 2-3 days. She reported sick contacts at home with flu-like symptoms. VS on admission: BP 153/65, HR 110, RR 18, SPO2 88% on RA corrected to 91% on 6 LNC Pertinent labs: WBC 8.6, H&H 13.9/43.2, platelets 208, potassium 4.1, BUN/CR 13/ 0.5, glucose 97 ABG: PH 7.42, PCO2 34 Flu test: Negative Patient was admitted to the general medicine floor for COPD exacerbation and the following were addressed during her hospital stay: Acute exacerbation of COPD and hypoxemic respiratory failure In the setting of underlying emphysema, requiring oxygen supplementation, likely secondary to a recent URI/bronchitis illness. Patient has very severe underlying COPD based on the records from Dr. Townsend office. PE was very unlikely due to the clinical presentation: recent sick contacts, increased cough and SOB in the setting of very severe COPD. and a relatively mild elevation of D-dimer (255). US doppler of LE were negative for DVT. Patient was treated for COPD exacerbation: O2 supplementation and TRC/nebulizers as needed, 5 day course of azithromycin while in the hospital, she also received IV steroids and was discharged on a slow prednisone taper. We also added Albuterol nebulizer to her meds and she will continue Stiolto after discharge. Patient is discharged on 3L O2 to use, on ambulation and at rest. She was not on home O2. She will follow up with Dr. Sam within a week of discharge. Chest pain - ruled out ACS Developed on the 5th day of admission. Stabbing in nature, 8/10 on the right lower chest, aggravated by coughing. EKG did not show any acute changes and troponins were negative x2. Risk of CVD in 10 years for her: 7.7% (>7.5%), therefore needed to be started on statin, we started her on 20 mg atorvastatin (we chose a lower dose to see how she tolerates the new medication) and instructed her about side effects ( myopathy and increased liver enzymes), and advised to follow with PCP after discharge. Tobacco dependence Patient was counseled on quitting smoking. She has a family history of sister of severe COPD and smoking at 56 years old. We also emphasized that patient should not be around people who smoke, apparently her daughter smokes at home (we told her that passive smoking will also worsen her respiratory status.) History of Psoriatic arthritis Patient will continued on Humira upon discharge. She will go back on home dose of prednisone after finishing prednisone taper on 11/21/16. Allergies: Coded Allergies: Penicillins (Severe, RASH 10/31/16) Significant Procedures: SERVICE DATE: 10/31/16-1112 EXAM TYPE: RAD - XRY-PORTABLE CHEST XRAY EXAMINATION: XR PORTABLE CHEST CLINICAL INFORMATION: Shortness of breath. Evaluate for pneumonia. COMPARISON: Chest x-ray dated 02/07/2007. TECHNIQUE: Portable AP semierect view of the chest was obtained. FINDINGS: The cardiomediastinal silhouette is within normal limits in size. Lungs bilaterally are symmetrically mildly hyperinflated. Slight thickening of the central airways and increased reticular opacities extending into the lung bases as seen, consistent with reactive airways disease/bronchitis and associated linear subsegmental atelectasis in the right lung base, possibly related to mucous plugging. Evolving pneumonia especially in the medial right lung base cannot be excluded and close clinical correlation and follow-up will be required. No effusion or pneumothorax is seen. Bony structures are unremarkable. IMPRESSION: Findings suspicious for bronchitis with linear subsegmental atelectasis in the right lung base, possibly related to mucous plugging. However, close clinical correlation and follow-up chest x-ray is recommended to exclude evolving pneumonia in the medial right lung base. DICTATED BY: SAGE HOLGUIN MD DATE/TIME DICTATED:10/31/161218 LEAD RAMP AGENT:YARIEL DATE/TIME TRANSCRIBED:10/31/161218 SERVICE DATE: 11/01/16- EXAM TYPE: CARD - ECHOCARDIOGRAM JAMES ROACH Age: 61 : 1955 Gender: F Exam Date: 11/01/2016 13:59 Exam Location: [address] [place] [address] Ht (in): 65 Wt (lb): 160 BSA: 1.84 BP: 128 / 54 Ordering Physician: MARYELLEN GU MD Referring Physician: MARYELLEN GU MD Technologist: Debra Solano [facility] Room Number: 204-01 Indications: SHORTNESS OF BREATH Rhythm: Technical Quality: Fair FINDINGS Left Ventricle Left ventricular cavity size normal. Normal left ventricular wall thickness. No obvious regional wall motion abnormalities. Left ventricular ejection fraction is estimated at > 65 %. Normal left ventricular diastolic filling pattern for age. Right Ventricle Normal right ventricular size and function. Right Atrium Normal right atrial size. Left Atrium Normal left atrial size. Mitral Valve Mild mitral annular calcification. No mitral stenosis. Trace mitral regurgitation. Aortic Valve Trileaflet aortic valve. No aortic stenosis. Aortic sclerosis. Tricuspid Valve Structurally normal tricuspid valve. Trace tricuspid regurgitation. Unable to estimate the right ventricular systolic pressure. Pulmonic Valve Pulmonic valve not well visualized, grossly normal. Pericardium Minimal pericardial effusion. Great Vessels Normal size aortic root. CONCLUSIONS Left ventricular cavity size normal. Normal left ventricular wall thickness. No obvious regional wall motion abnormalities. Left ventricular ejection fraction is estimated at > 65 %. Normal left ventricular diastolic filling pattern for age. Normal right ventricular size and function. Unable to estimate the right ventricular systolic pressure. Minimal pericardial effusion. Kenn Espinoza M.D. (Electronically Signed) Final Date: 02 November 2016 09:41 MEASUREMENTS (Male / Female) Normal Values 2D ECHO LV Diastolic Diameter PLAX 3.3 cm 4.2 - 5.9 / 3.9 - 5.3 cm LV Systolic Diameter PLAX 1.9 cm 2.1 - 4.0 cm LV Fractional Shortening PLAX 42.4 % 25 - 46 % LV Ejection Fraction 2D Teich 74.7 % IVS Diastolic Thickness 0.8 cm LVPW Diastolic Thickness 0.8 cm LV Relative Wall Thickness 0.5 RV Internal Dim ED PLAX 2.9 cm 1.9 - 3.8 cm LVOT Diameter 1.8 cm Aortic Root Diameter 2.8 cm LA Systolic Diameter LX 3.4 cm 3.0 - 4.0 / 2.7 - 3.8 cm LA Volume 18.0 cm 18 - 58 / 22 - 52 cm DOPPLER AV Peak Velocity 177.0 cm/s AV Peak Gradient 12.5 mmHg AV Mean Velocity 116.0 cm/s AV Mean Gradient 6.0 mmHg AV Velocity Time Integral 35.6 cm LVOT Peak Velocity 150.0 cm/s LVOT Peak Gradient 9.0 mmHg LVOT Mean Velocity 99.9 cm/s LVOT Mean Gradient 5.0 mmHg LVOT Velocity Time Integral 28.9 cm LVOT Stroke Volume 73.5 cm AV Area Cont Eq vti 2.1 cm AV Area Cont Eq pk 2.2 cm MV Peak Velocity 119.0 cm/s MV Peak Gradient 5.7 mmHg MV Mean Velocity 71.2 cm/s MV Mean Gradient 2.0 mmHg Mitral E Point Velocity 90.3 cm/s Mitral A Point Velocity 75.5 cm/s Mitral E to A Ratio 1.2 MV PHT Velocity 119.0 cm/s MV Deceleration [place] 577.0 cm/s MV Pressure Half Time 61.9 ms MV Area PHT 3.6 cm MV Deceleration Time 238.0 ms PV Peak Velocity 130.0 cm/s PV Peak Gradient 6.8 mmHg PV Mean Velocity 89.6 cm/s PV Mean Gradient 4.0 mmHg PV Velocity Time Integral 29.0 cm LV E' Lateral Velocity 12.0 cm/s Mitral E to LV E' Lateral Ratio 7.5 LV E' Septal Velocity 9.1 cm/s Mitral E to LV E' Septal Ratio 10.0 DICTATED BY: KENN ESPINOZA MD DATE/TIME DICTATED:11/02/16940 LEAD RAMP AGENT:YARIEL DATE/TIME TRANSCRIBED:11/02/16940 SERVICE DATE: 11/01/16- EXAM TYPE: US - US-EXT BILAT VENOUS DOPPLER EXAMINATION: US TRIPLEX LOWER EXTREMITY, BILATERAL CLINICAL INFORMATION: Acute hypoxia. COMPARISON: None TECHNIQUE: Color-flow triplex imaging with spectral analysis and compression Doppler were performed on the bilateral lower extremities. FINDINGS: Respiratory variation, normal compression and augmented flow are noted throughout the bilateral lower extremities. The visualized common femoral vein, superficial femoral vein, profunda femoral vein, popliteal vein and midcalf peroneal and posterior tibial venous segments show no evidence of deep venous thrombosis. There is no Harden's cyst. IMPRESSION: Normal triplex scan without evidence of deep venous thrombosis involving the bilateral lower extremities. DICTATED BY: CANDACE EASON MD DATE/TIME DICTATED:11/01/161349 LEAD RAMP AGENT:YARIEL DATE/TIME TRANSCRIBED:11/01/161349 SERVICE DATE: 11/02/16 EXAM TYPE: RAD - XRY-CHEST XRAY, PA AND LATERAL EXAMINATION: XR CHEST CLINICAL INFORMATION: Worsening shortness of breath. COMPARISON: 10/31/2016 TECHNIQUE: 2 views of the chest were obtained. FINDINGS: Lungs are hyperexpanded with increased AP dimension of the chest; this suggests possibility of pulmonary emphysema. Again, the airway mason appear thickened within lower lobes. There are abnormal streaky, peribronchial opacities in each lower lobe. This likely represents atelectasis associated with bronchitis. No pleural effusion. Cardiac silhouette is normal in size. The mediastinal and hilar contours are normal. Thoracic aorta is calcified. No acute osseous findings. IMPRESSION: Probable active bronchitis and peribronchial streaky opacities of atelectasis in the lower lobes. Overall, no significant interval change in appearance of the chest compared to 10/31/2016. DICTATED BY: BRI MC MD DATE/TIME DICTATED:11/02/161535 LEAD RAMP AGENT:YARIEL DATE/TIME TRANSCRIBED:11/02/161535 Pertinent Lab Results: 11/03/16 0632: CBC w Diff NO MAN DIFF REQ, RBC 5.02, MCV 78.6 L, MCH 25.0 L, RDW 17.7 H, MPV 10.6 H, Gran % 84.7 H, Lymphocytes % 10.5 L, Monocytes % 4.8, Eosinophils % 0 , Basophils % 0 L, Absolute Granulocytes 12.2 H, Absolute Lymphocytes 1.5, Absolute Monocytes 0.7 H, Absolute Eosinophils 0, Absolute Basophils 0, PUBS MCHC 31.8 L 11/02/16 0708: Anion Gap 8, Estimated GFR > 60, BUN/Creatinine Ratio 25.0, CBC w Diff NO MAN DIFF REQ, RBC 5.23, MCV 78.1 L, MCH 24.6 L, RDW 16.8 H, MPV 10.6 H, Gran % 90.9 H, Lymphocytes % 5.0 L, Monocytes % 3.9, Eosinophils % 0, Basophils % 0.2 , Absolute Granulocytes 14.7 H, Absolute Lymphocytes 0.8 L, Absolute Monocytes 0.6, Absolute Eosinophils 0, Absolute Basophils 0, PUBS MCHC 31.4 L 11/01/16 0620: Anion Gap 13, Estimated GFR > 60, BUN/Creatinine Ratio 21.7, Phosphorus 3.7, Magnesium 2.2, D-Dimer 255 H, CBC w Diff MAN DIFF ORDERED, RBC 5.46 H, MCV 78.1 L, MCH 24.8 L, RDW 17.2 H, MPV 10.6 H, Gran % 84.0 H, Lymphocytes % 10.2 L, Monocytes % 5.7, Eosinophils % 0.1, Basophils % 0 L, Absolute Granulocytes 6.3, Segmented Neutrophils 75, Band Neutrophils 9 H, Absolute Lymphocytes 0.8 L, Lymphocytes 14 L, Monocytes 2, Absolute Monocytes 0.4, Absolute Eosinophils 0, Absolute Basophils 0, Platelet Estimate VERIFIED BY SMEAR, Anisocytosis 1+, PUBS MCHC 31.7 L 10/31/16 1800: Troponin I < 0.01 10/31/16 1340: Urinalysis LIGHT H, Urine Color YEL, Urine Clarity HAZY H, Urine pH 6.0, Ur Specific [place] 1.025, Urine Protein TRACE H, Urine Ketones NEG, Urine Nitrite NEG, Urine Bilirubin NEG, Urine Urobilinogen 0.2, Ur Leukocyte Esterase MOD H, Ur Microscopic SEDIMENT EXAMINED, Urine WBC 25-50 H, Ur Epithelial Cells MANY H, Urine Hemoglobin NEG, Urine Glucose NEG Disposition Summary Disposition Principal Diagnosis: COPD exacerbation and bronchitis Additional Diagnosis: Very severe COPD and emphysema Psoriatic arthritis Discharge Disposition: home health services Discharge Instructions General Discharge Information Code Status: Do Not Resucitate/Intubat Patient's Diet: Regular Patient's Activity: as tolerated Follow-Up Instructions/Appts: 1. Please note that we have started you on lipid lowering medication for heart health, please be advised that one possible side effect is muscle pain, if severe pain occurs please stop the medications and follow up with PCP. You will also need to be monitored regarding liver function while on statin, please follow up with PCP. 2. Please follow instructions on tapering steroid dose, you will continue home dose after the taper. 3. Please follow up with Pulmonary Dr. Sam within a week of discharge 4. Please follow up with your PCP within a week 5. Refrain from smoking 6. Come back to the ED if symptoms recur Medications at Discharge Discharge Medications: Continue taking these medications: Tiotropium Br/Olodaterol HCl (Stiolto Respimat Inhal [place]) 2.5 MCG-2.5 MCG/ ACTUATION MIST.INHAL 2 PUFF Inhale through mouth DAILY Qty = 4 Comments: NOT GIVEN IN HOSPITAL Adalimumab (Humira Pen) 40 MG/0.8 ML PEN.IJ.KIT 40 INTRAVEN EVERY 2 WEEKS Qty = 2 Comments: NOT GIVEN IN HOSPITAL Prednisone (Prednisone) 5 MG TABLET 7.5 Milligram ORAL DAILY Qty = 90 Instructions: please continue predinose 7.5 mg daily starting on 11/21/16 after prednisone taper (for COPD exacerbation) is completed. Comments: NOT GIVEN IN HOSPITAL Start taking the following new medications: Nicotine (Nicotine Patch) 14 MG/24 HOUR PATCH.TD24 14 Milligram On the skin DAILY Qty = 28 No Refills Comments: Last Taken:11/05/16 Time: 0415AM Albuterol Sulfate (Albuterol Sulfate) 1.25 MG/3 ML VIAL.NEB 1 Vial Inhale Solution EVERY 4-6 HOURS as needed for shortness of breath Qty = 150 No Refills Comments: Last Taken:11/05/16 Time:0930AM Prednisone (Prednisone) 10 MG TABLET 0 ORAL SEE INSTRUCTIONS Days = 16 No Refills Instructions: On take 11/05 60 mg 11/06-11/08 50 mg 11/09-11/11 40 mg 11/12-11/14 30 mg 11/15-11/17 20 mg 11/18-11/20 10 mg 11/21 onwards continue with home dose of 7.5 mg prednisone for psoriatic arthritis Comments: Last Taken:11/05/16 Time: 0900AM Atorvastatin Calcium (Atorvastatin Calcium) 20 MG TABLET 1 Tablet ORAL DAILY Qty = 30 No Refills Comments: NOT GIVEN IN HOSPITAL Guaifenesin (Mucinex) 600 MG TAB.ER.12H 1 Tablet ORAL TWICE DAILY Qty = 20 No Refills Alprazolam (Xanax) 0.25 MG TABLET 1 Tablet ORAL DAILY as needed for Anxiety Qty = 10 No Refills Copies To: STACY BARRETT,PREET Hillman; BRI LOUIS MD; KEILY BARRETT,BRIDGET Attending MD Review Statement Documenting Attending: TREVA TO MD Other Findings: Agree with the above discharge plan.
--- NOTE | 2016-11-03 11:30 | PN- Pulmonary ---
Subjective HPI/Critical Care Issues: pt seen and examined doing well down to 3LNC no new events Objective Current Medications: Current Medications Sig/Mark Start time Last Medication Dose Route Stop Time Status Admin Albuterol Sulfate 3 ML EVERY 4 HRS/AWAKE 11/01 0800 AC 11/03 INH 1100 Azithromycin 500 MG DAILY@1700 11/03 1700 AC Dextrose/Water 250 ML IV 11/04 1759 Azithromycin 500 MG DAILY 11/02 1345 DC 11/02 Dextrose/Water 250 ML IV 11/04 1059 1718 Azithromycin 250 MG DAILY 11/02 1000 DC 11/02 PO 1008 Guaifenesin/ 10 ML Q6P PRN 11/01 0500 AC 11/02 Dextromethorphan PO 2131 Ibuprofen 600 MG Q6P PRN 10/31 1445 AC PO Ipratropium [place] 2.5 ML EVERY 4 HRS/AWAKE 11/01 0800 AC 11/03 INH 1100 Melatonin 5 MG AT BEDTIME 11/02 0230 AC 11/02 PO 2103 Methylprednisolone 40 MG Q12H 11/03 1800 CAN IV Methylprednisolone 40 MG Q12 11/03 1000 DC IV Methylprednisolone 40 MG Q8 11/02 1400 DC 11/03 IV 0552 Methylprednisolone 40 MG Q6 10/31 1800 DC 11/02 IV 1304 Nicotine 14 MG DAILY 11/01 1000 AC 11/03 TOP 1002 Oxycodone HCl 10 MG Q6P PRN 10/31 1445 AC PO Oxycodone/ 1 TAB Q6P PRN 10/31 1445 AC Acetaminophen PO Patient Medication 1 ED ONE ONE 11/02 1315 DC Teaching ED 11/02 1316 Prednisone 60 MG DAILY 11/03 1000 AC PO 11/05 1001 Vital Signs & I&O Last 24 Hrs of Vitals and I&O: Vital Signs Date Time Temp Pulse Resp B/P Pulse O2 O2 Flow FiO2 Ox Delivery Rate 11/03 0827 20 90 Nasal 3.0L Cannula 11/03 0800 93 Nasal 5.0L Cannula 11/03 0800 96.3 70 20 151/71 93 Nasal 5.0L Cannula 11/03 0731 93 Nasal 5.0L Cannula 11/03 0101 98.3 90 20 137/67 98 Nasal Cannula 11/03 0000 Nasal 5.0L Cannula 11/02 1600 91 Nasal 5.0L Cannula 11/02 1550 95 Nasal 5.0L Cannula 02/27 1544 98.2 99 20 150/78 91 Nasal 4.0L Cannula Intake & Output 11/03 1600 11/03 0800 11/03 0000 Intake Total 360 1000 Output Total 300 600 Balance 60 400 Intake, Oral 360 1000 Number 1 Bowel Movements Output, Urine 300 600 Exam Other Physical Findings: gen - awake and alert, speaks in full sentences, mild respiratory distress heent - ncat cvs - s1, s2 lungs - scattered inspiratory and expiratory wheezes with forceful exhalation, prolonged end expiratory phase abd - soft, bs+ ext - without edema Results Last 24 Hrs of Lab Results: Laboratory Tests 11/03/16 0632: CBC w Diff NO MAN DIFF REQ, RBC 5.02, MCV 78.6 L, MCH 25.0 L, RDW 17.7 H, MPV 10.6 H, Gran % 84.7 H, Lymphocytes % 10.5 L, Monocytes % 4.8, Eosinophils % 0 , Basophils % 0 L, Absolute Granulocytes 12.2 H, Absolute Lymphocytes 1.5, Absolute Monocytes 0.7 H, Absolute Eosinophils 0, Absolute Basophils 0, PUBS MCHC 31.8 L Impression/Plan Impression/Plan Impression/Plan: Impression 61 year old woman - Acute exacerbation of COPD/underlying emphysema accompanied with hypoxemic respiratory failure requiring oxygen supplementation, this is likely secondary to a recent URI/bronchitis illness - pulmonary nodules per patient - ?psoriatic involvement - very low suspicion for VTE - very severe emphysema Plan - assess/document and arrange home oxygen based on results - dc planning - would taper steroids, depending on dc plan, would plan to switch to po prednisone from solumedrol starting with 60mg and taper by 10mg every 3 days -TRC/Nebs - Zithromax for a duration of 5 days - mucinex - very low suspicion of VTE, would stop a/c, pt declines testing - smoking cessation/counseled - check [id number] - DVT prophylaxis at all times - once a/c d/c, begin prophylactic lovenox
--- NOTE | 2016-11-03 16:02 | PN- Att Addend ---
Attending MD Review Statement Attending Statement Attending MD Statement: examined this patient, discuss w/resident/PA/MERCHANDISE COORDINATOR, agreed w/resident/PA/MERCHANDISE COORDINATOR, reviewed EMR data (avail), discussed w/nursing Attending Assessment/Plan: Laboratory Tests 11/03/16 0632: CBC w Diff NO MAN DIFF REQ, RBC 5.02, MCV 78.6 L, MCH 25.0 L, RDW 17.7 H, MPV 10.6 H, Gran % 84.7 H, Lymphocytes % 10.5 L, Monocytes % 4.8, Eosinophils % 0 , Basophils % 0 L, Absolute Granulocytes 12.2 H, Absolute Lymphocytes 1.5, Absolute Monocytes 0.7 H, Absolute Eosinophils 0, Absolute Basophils 0, PUBS MCHC 31.8 L Vital Signs Date Time Temp Pulse Resp B/P Pulse O2 O2 Flow FiO2 Ox Delivery Rate 11/03 0827 20 90 Nasal 3.0L Cannula 11/03 0800 93 Nasal 5.0L Cannula 11/03 0800 96.3 70 20 151/71 93 Nasal 5.0L Cannula 11/03 0731 93 Nasal 5.0L Cannula 11/03 0101 98.3 90 20 137/67 98 Nasal Cannula 11/03 0000 Nasal 5.0L Cannula pts PFTs from last year november 2015, shows very severe COPD with decreased DLCO. d/w pulmonology, cont steroids and zithromax. Pt very low likelyhood for PE, will dc the lovenox. Pulmonolgy ok with that. Will aim for oxygen saturation of 88-90%, pt has acute on chronic hypoxic respiratory failure secondary to copd exacerbation. will send alpha 1 antitrypsin level given the relatively young age and severe copd. Pt having lot of cough and wheezing this am. Cont current management. Pt will need slow taper of steroids at discharge. d/w pt the care plan. Pt will f/u with dr victor after dc.
[2016-11-03 16:52] VITALS: BP 140/86
[2016-11-04] VITALS: BP 140/80
--- NOTE | 2016-11-04 06:56 | PN- Housestaff ---
See Addendum Subjective Follow-up For: shortness of breath and cough Subjective: I saw and examined the patient this morning. She is sitting in bed alert awake and oriented in no distress. Patient reports improvement of her symptoms, however she needed nebulizer treatment once overnight and she asks if she can have nebulizer at home as well, patient also is concerned about her need for oxygen after discharge and I reassured her that we will check oxygen level at rest and on ambulation to determine the amount of oxygen she needs to go home with. Patient is also following up on the results of the enzyme alpha-1- antichymotrypsin which I am going to follow up on that as well, if not ready patient can follow-up with Dr. Sam outpatient for the results. Later in the morning at 8 AM patient developed lower right chest pain (8) radiating to the back while on nebulizer treatment, she is saturating 91% on 3 L , does not appear in distress, blood pressure 150/80, we ordered EKG and troponin stat. EKG is unremarkable and will follow up on the troponin. Within a few minutes patient's symptoms improved and she is lying in bed appears calm, in no distress. Review of Systems Constitutional: Denies: chills, fever, weakness. EENTM: Reports: no symptoms. Cardiovascular: Reports: chest pain. Denies: palpitations, peripheral edema. Respiratory: Reports: cough, short of breath, sputum production. Denies: wheezing. Gastrointestinal: Denies: abdominal pain, changes in stool. Genitourinary: Denies: discharge, dysuria, frequency, pain. Musculoskeletal: Reports: no symptoms. Skin: Reports: no symptoms. Neurological/Psychological: Reports: no symptoms. Hematologic/Endocrine: Reports: no symptoms. Objective Last 24 Hrs of Vital Signs/I&O Vital Signs Date Time Temp Pulse Resp B/P Pulse O2 O2 Flow FiO2 Ox Delivery Rate 11/04 0810 80 20 150/80 91 Nasal 3.0L Cannula 11/04 0807 91 Nasal 3.0L Cannula 11/04 0350 92 Nasal 3.0L Cannula 11/04 0000 Nasal 3.0L Cannula 11/04 0000 96.7 80 18 140/80 93 Nasal 3.0L Cannula 11/03 1721 91 Nasal 3.0L Cannula 11/03 1652 97.5 92 16 140/86 95 Nasal 2.0L Cannula 11/03 1600 Nasal 3.0L Cannula 11/03 0827 20 90 Nasal 3.0L Cannula Intake & Output 11/04 1600 11/04 0800 11/04 0000 Intake Total 240 1050 Output Total 500 350 Balance -260 700 Intake, IV 250 Intake, Oral 240 800 Output, Urine 500 350 Physical Exam General Appearance: Alert, Oriented X3, Cooperative, No Acute Distress Skin: No Rashes, No Breakdown, No Significant Lesion HEENT: Atraumatic, EOMI Neck: Supple, No JVD Cardiovascular: Regular Rate, Normal S1, Normal S2, No Murmurs Lungs: decreased breath sounds in both lungs, no wheezing heard in the examination today. no rhonchi or crackles. Abdomen: Soft, No Tenderness Neurological: Normal Speech, Normal Tone Extremities: No Edema, Normal Pulses Vascular: Pulses Symmetrical Current Medications: Current Medications Sig/Mark Start time Last Medication Dose Route Stop Time Status Admin Albuterol Sulfate 3 ML EVERY 4 HRS/AWAKE 11/01 0800 AC 11/04 INH 0802 Azithromycin 500 MG DAILY@1700 11/03 1700 AC 11/03 Dextrose/Water 250 ML IV 11/04 1759 1711 Azithromycin 500 MG DAILY 11/02 1345 DC 11/02 Dextrose/Water 250 ML IV 11/04 1059 1718 Guaifenesin/ 10 ML Q6P PRN 11/01 0500 AC 11/03 Dextromethorphan PO 1907 Ibuprofen 600 MG Q6P PRN 10/31 1445 AC 11/03 PO 1140 Ipratropium [place] 2.5 ML EVERY 4 HRS/AWAKE 11/01 0800 AC 11/04 INH 0802 Melatonin 5 MG AT BEDTIME 11/02 0230 AC 11/03 PO 2118 Methylprednisolone 40 MG Q12H 11/03 1800 CAN IV Methylprednisolone 40 MG Q12 11/03 1000 DC IV Nicotine 14 MG DAILY 11/01 1000 AC 11/03 TOP 1002 Oxycodone HCl 10 MG Q6P PRN 10/31 1445 AC PO Oxycodone/ 1 TAB Q6P PRN 10/31 1445 AC Acetaminophen PO Prednisone 60 MG DAILY 11/03 1000 AC 11/03 PO 11/05 1001 1133 Last 24 Hrs of Lab/[place] Results Last 24 Hrs of Labs/Mics: Laboratory Tests 11/04/16 0610: CBC w Diff Pending, WBC Pending, RBC Pending, Hgb Pending, Hct Pending, MCV Pending, MCH Pending, RDW Pending, Plt Count Pending, MPV Pending, PUBS MCHC Pending Assessment/Plan Assessment: Mrs Roach is a 61-year-old lady with a PMH of COPD currently on Stiolto 2 puffs QAM, psoriatic arthritis on 7 mg prednisone and Humira every other week, chronic tobacco use at 1 pack per day who presents with complaints of new onset shortness of breath. reported sick contacts and feeling unwell for a day before SOB started. VS on admission: BP 153/65, HR 110, RR 18, SPO2 88% on RA corrected to 91% on 6 LNC Pertinent labs: WBC 8.6, H&H 13.9/43.2, platelets 208, potassium 4.1, BUN/CR 13/ 0.5, glucose 97 ABG: PH 7.42, PCO2 34 Flu test: Negative Problem list: 1. episode of chest pain this morning 2. Acute hypoxemia in the setting of severe COPD. Etiology: COPD exacerbation and bronchitis 3. Tobacco dependence 4. Psoriatic arthritis 5. Social issues at home (her is an alcoholic and the patient is afraid of him coming back to the house after she gets discharged to home). Plan: * Patient had right lower chest pain, sharp 8/10 radiating to the back around 8 am this morning while sitting in bed and getting nebulizer, not associated with eating, resolved in a few minutes. EKG unremarkable, troponin (-), will repeat in 6 hours. * Risk of CVD in 10 years calculated to be 7.7% (>7.5%( therefore needs high dose statin, we started her on 40 mg atorvastatin and instructed her about side effects (myopathy and increased liver enzymes), advised to follow with PCP after discharge. * Pulmonary on board, followed recommendations * Completed azithromycin 500 mg 5 days, started prednisone 60 mg from today and going home with gradual taper, will also add Albuterol nebulizer to her meds and she will continue Stiolto. TRCs with nebulizer therapy. Will taper off O2 with goal of 90% per pulmonary. * We did smoking cessation counseling, also emphasized that patient should not be around people who smoke, apparently her daughter smokes (we told her that passive smoking will also worsen her respiratory status.) * Obtained social work consult with Tayla regarding difficulties at home due to her 's alcoholism. * DVT prophylaxis: ALPS. DC'd Lovenox as patient had nose bleeds. * CODE STATUS: DNR/DNI Problem List: 1. COPD exacerbation 2. Hypoxia 3. Tobacco dependence 4. Psoriatic arthritis Pain Ratin Pain Location: no pain Pain Goal: Pain 4 or less Pain Plan: mild pp Tomorrow's Labs & Rationales: CBC (leukocytosis)
[2016-11-04 08:10] VITALS: BP 150/80
[2016-11-04 08:12] LABS: ABSOLUTE BASOPHIL COUNT 0 /CUMM (0.0-0.2); ABSOLUTE EOSINOPHIL COUNT 0 /CUMM (0.0-0.7); ABSOLUTE GRANULOCYTE CT 8.1 /CUMM (1.4-6.5); ABSOLUTE LYMPH COUNT 2.6 /CUMM (1.2-3.4); ABSOLUTE MONOCYTE COUNT 0.8 /CUMM (0.10-0.60); BASOPHIL % 0.2 % (0.0-2.0); EOSINOPHIL % 0.2 % (0-5); GRANULOCYTE % 69.8 % (42.2-75.2); HEMATOCRIT 40.1 % (37-47); MEAN CORPUSCULAR HGB 24.9 PG (27.0-31.0); MEAN CORPUSCULAR HGB CONC 31.7 G/DL (33.0-37.0); MEAN CORPUSCULAR VOLUME 78.4 FL (81.0-99.0); MEAN PLATELET VOLUME 10.2 FL (7.4-10.4); PLATELET COUNT 219 /CUMM (130-400); RBC DISTRIBUTION WIDTH 17.2 % (11.5-14.5); RED BLOOD CELL CT 5.12 /CUMM (4.20-5.40)
[2016-11-04 10:07] LABS: WHITE BLOOD CELL COUNT 11.6 /CUMM (4.8-10.8)
--- NOTE | 2016-11-04 11:43 | PN- Pulmonary ---
Subjective HPI/Critical Care Issues: pt seen and examined had chest pain lasting about 3 minutes overnight resolved spontaneously, right sided, non reproducible afebrile remains on 3LNC Objective Current Medications: Current Medications Sig/Mark Start time Last Medication Dose Route Stop Time Status Admin Albuterol Sulfate 3 ML EVERY 4 HRS/AWAKE 11/01 0800 AC 11/04 INH 1139 Azithromycin 500 MG DAILY@1700 11/03 1700 AC 11/03 Dextrose/Water 250 ML IV 11/04 1759 1711 Guaifenesin/ 10 ML Q6P PRN 11/01 0500 AC 11/04 Dextromethorphan PO 0901 Ibuprofen 600 MG Q6P PRN 10/31 1445 AC 11/03 PO 1140 Ipratropium [place] 2.5 ML EVERY 4 HRS/AWAKE 11/01 08 AC 11/04 INH 1139 Melatonin 5 MG AT BEDTIME 11/02 0230 AC 11/03 PO 2118 Nicotine 14 MG DAILY 11/01 1000 AC 11/04 TOP 0901 Oxycodone HCl 10 MG Q6P PRN 10/31 1445 AC PO Oxycodone/ 1 TAB Q6P PRN 10/31 1445 AC Acetaminophen PO Prednisone 60 MG DAILY 11/03 1000 AC 11/04 PO 11/05 1001 0901 Vital Signs & I&O Last 24 Hrs of Vitals and I&O: Vital Signs Date Time Temp Pulse Resp B/P Pulse O2 O2 Flow FiO2 Ox Delivery Rate 11/04 0810 80 20 150/80 91 Nasal 3.0L Cannula 11/04 0807 91 Nasal 3.0L Cannula 11/04 0800 91 Nasal 3.0L Cannula 11/04 0350 92 Nasal 3.0L Cannula 11/04 0000 Nasal 3.0L Cannula 11/04 0000 96.7 80 18 140/80 93 Nasal 3.0L Cannula 11/03 1721 91 Nasal 3.0L Cannula 11/03 1652 97.5 92 16 140/86 95 Nasal 2.0L Cannula 11/03 1600 Nasal 3.0L Cannula Intake & Output 11/04 1600 11/04 0800 11/04 0000 Intake Total 240 1050 Output Total 500 350 Balance -260 700 Intake, IV 250 Intake, Oral 240 800 Output, Urine 500 350 Exam Other Physical Findings: gen - awake and alert, speaks in full sentences, mild respiratory distress heent - ncat cvs - s1, s2 lungs - scattered inspiratory and expiratory wheezes with forceful exhalation, prolonged end expiratory phase abd - soft, bs+ ext - without edema Results Last 24 Hrs of Lab Results: Laboratory Tests 11/04/16 0820: Troponin I < 0.01, Triglycerides 248 H, Cholesterol 191, LDL Cholesterol, Calc 91, HDL Cholesterol 51, Cholesterol/HDL Ratio 4 11/04/16 0610: CBC w Diff NO MAN DIFF REQ, RBC 5.12, MCV 78.4 L, MCH 24.9 L, RDW 17.2 H, MPV 10.2, Gran % 69.8, Lymphocytes % 22.8, Monocytes % 7.0, Eosinophils % 0.2, Basophils % 0.2, Absolute Granulocytes 8.1 H, Absolute Lymphocytes 2.6, Absolute Monocytes 0.8 H, Absolute Eosinophils 0, Absolute Basophils 0, PUBS MCHC 31.7 L Impression/Plan Impression/Plan Impression/Plan: Impression 61 year old woman - Acute exacerbation of COPD/underlying emphysema accompanied with hypoxemic respiratory failure requiring oxygen supplementation, this is likely secondary to a recent URI/bronchitis illness - pulmonary nodules per patient - ?psoriatic involvement - very low suspicion for VTE - very severe emphysema - resolved chest pain Plan - assess/document and arrange home oxygen based on results - dc planning - steroid taper as ordered - TRC/Nebs, home nebs/neb machine - only albuterol (pt on laba/lama at home) - Zithromax for a duration of 5 days - mucinex - smoking cessation/counseled - DVT prophylaxis at all times if chest pain is stable and troponins/ekg negative would be okay for dc from pulmonary perspective
[2016-11-04] MEDS ORDERED: PREDNISONE20 M1 PO (11:50)
[2016-11-04] MEDS ORDERED: ALBUTEROL1.25 MG/1 INH/SOL (11:52)
[2016-11-04] MEDS ORDERED: ATORVASTATIN CA40 M1 PO (12:02)
[2016-11-04] MEDS ORDERED: PREDNISONE10 M2 PO (13:10)
[2016-11-04 14:17] VITALS: BP 148/72
[2016-11-04 21:48] VITALS: BP 134/70
--- NOTE | 2016-11-05 06:55 | PN- Housestaff ---
See Addendum Subjective Follow-up For: SOB and cough Pleuritic chest pain Subjective: I saw and examined the patient this am, she is sitting in bed, alert and oriented, not in distress, reports similar chest pain this morning on the right lower chest sharp stabbing pain with no chest pressure, sweating, dizziness, nausea, pain on the left arm or jaw. Reports no change breathing michel compared to yesterday, did not sleep well last night. Reports coughing with sputum as well as SOB when walking. Patient is not happy with the fact that she is most likely going to have oxygen all the time as she will not be able to work. 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 Review of Systems Constitutional: Denies: chills, fever, weakness. Cardiovascular: Denies: chest pain, palpitations. Respiratory: Reports: cough, short of breath, sputum production. Gastrointestinal: Denies: abdominal pain, diarrhea, nausea, changes in stool, vomiting. Genitourinary: Reports: no symptoms. Musculoskeletal: Reports: no symptoms. Skin: Reports: no symptoms. Neurological/Psychological: Reports: no symptoms. Hematologic/Endocrine: Reports: no symptoms. Objective Last 24 Hrs of Vital Signs/I&O Vital Signs Date Time Temp Pulse Resp B/P Pulse O2 O2 Flow FiO2 Ox Delivery Rate 11/05 1600 Nasal 3.0L Cannula 11/05 1359 98.7 94 20 138/84 90 Nasal 3.0L Cannula 11/05 0907 96 Nasal 3.0L Cannula 11/05 0834 20 90 Nasal 3.0L Cannula 11/05 0833 20 86 Room Air 11/05 0831 22 88 Room Air 11/05 0830 20 90 Nasal 3.0L Cannula 11/05 0800 90 Nasal 3.0L Cannula 11/05 0742 98.3 89 18 138/94 93 Nasal 3.0L Cannula 11/05 0000 91 Nasal 3.0L Cannula 11/04 2148 97.4 90 18 134/70 91 Nasal 3.0L Cannula Intake & Output 11/05 1600 02 0800 11/05 0000 Intake Total 910 100 870 Output Total 1000 400 600 Balance -90 -300 270 Intake, IV 10 0 270 Intake, Oral 900 100 600 Number 1 1 Bowel Movements Output, Urine 1000 400 600 Patient 72.575 kg Weight Physical Exam General Appearance: Alert, Oriented X3, Cooperative, No Acute Distress Skin: No Significant Lesion HEENT: Atraumatic, EOMI, Mucous Membr. moist/pink Neck: Supple Cardiovascular: Normal S1, Normal S2, No Murmurs Lungs: decreased breath sounds, scattered rhonchi heard on the right lung, no wheezing appreciated. Abdomen: Soft, No Tenderness Neurological: Normal Gait, Normal Speech, Strength at 5/5 X4 Ext, Normal Tone Extremities: No Edema, Normal Pulses Vascular: Pulses Symmetrical Current Medications: Current Medications Sig/Mark Start time Last Medication Dose Route Stop Time Status Admin Albuterol Sulfate 3 ML EVERY 4 HRS/AWAKE 11/01 0800 DCD 11/05 INH 1438 Guaifenesin/ 10 ML Q6P PRN 11/01 0500 DCD 11/05 Dextromethorphan PO 0415 Ibuprofen 600 MG Q6P PRN 10/31 1445 DCD 11/05 PO 1045 Ipratropium [place] 2.5 ML EVERY 4 HRS/AWAKE 11/01 0800 DCD 11/05 INH 1439 Melatonin 5 MG AT BEDTIME 11/02 0230 DCD 11/04 PO 2146 Nicotine 14 MG DAILY 11/01 1000 DCD 11/05 TOP 0415 Oxycodone HCl 10 MG Q6P PRN 10/31 1445 DCD PO Oxycodone/ 1 TAB Q6P PRN 10/31 1445 DCD Acetaminophen PO Prednisone 60 MG DAILY 11/03 1000 DC 11/05 PO 11/05 1001 0924 Assessment/Plan Assessment: Mrs Roach is a 61-year-old lady with a PMH of COPD currently on Stiolto 2 puffs QAM, psoriatic arthritis on 7 mg prednisone and Humira every other week, chronic tobacco use at 1 pack per day who presents with complaints of new onset shortness of breath. reported sick contacts and feeling unwell for a day before SOB started. VS on admission: BP 153/65, HR 110, RR 18, SPO2 88% on RA corrected to 91% on 6 LNC Pertinent labs: WBC 8.6, H&H 13.9/43.2, platelets 208, potassium 4.1, BUN/CR 13/ 0.5, glucose 97 ABG: PH 7.42, PCO2 34 Flu test: Negative Problem list: 1. Another episode of chest pain this morning, pleuritic in nature, worsens with coughing 2. Acute hypoxemia in the setting of severe COPD. Etiology: COPD exacerbation and bronchitis 3. Tobacco dependence 4. Psoriatic arthritis 5. Social issues at home (her is an alcoholic and the patient is afraid of him coming back to the house after she gets discharged to home). Plan: * EKG unremarkable, troponinx2 (-) yesterday * Risk of CVD in 10 years calculated to be 7.7% (>7.5%, therefore needs statin, we started her on 20 mg atorvastatin (not to begin with high dose to see how she tolerates the new medication) and instructed her about side effects (myopathy and increased liver enzymes), advised to follow with PCP after discharge. * Pulmonary on board, followed recommendations * Completed azithromycin 500 mg 5 days, started prednisone 60 mg from today and going home with gradual taper, will also add Albuterol nebulizer to her meds and she will continue Stiolto. TRCs with nebulizer therapy. [id number] of 90% per pulmonary. Will go home on 3L O2. * We did smoking cessation counseling, also emphasized that patient should not be around people who smoke, apparently her daughter smokes (we told her that passive smoking will also worsen her respiratory status.) * Obtained social work consult with Tayla regarding difficulties at home due to her 's alcoholism. * DVT prophylaxis: ALPS. DC'd Lovenox as patient had nose bleeds. * CODE STATUS: DNR/DNI Problem List: 1. Psoriatic arthritis 2. Tobacco dependence 3. Hypoxia 4. COPD exacerbation Pain Ratin Pain Location: no pain Pain Goal: Pain 4 or less Pain Plan: mild pp Tomorrow's Labs & Rationales: none
[2016-11-05 07:42] VITALS: BP 138/94
[2016-11-05] MEDS ORDERED: ATORVASTATIN CA20 M1 PO (09:19)
--- NOTE | 2016-11-05 10:58 | PN- Pulmonary ---
Subjective HPI/Critical Care Issues: pt seen and examined stable from respiratory perspective however had another episode of chest pain with reproducible midline tenderness Objective Current Medications: Current Medications Sig/Mark Start time Last Medication Dose Route Stop Time Status Admin Albuterol Sulfate 3 ML EVERY 4 HRS/AWAKE 11/01 0800 AC 11/05 INH 0900 Azithromycin 500 MG DAILY@1700 11/03 1700 DC 11/04 Dextrose/Water 250 ML IV 11/04 1759 1605 Guaifenesin/ 10 ML Q6P PRN 11/01 0500 AC 11/05 Dextromethorphan PO 0415 Ibuprofen 600 MG Q6P PRN 10/31 1445 AC 11/05 PO 1045 Ipratropium [place] 2.5 ML EVERY 4 HRS/AWAKE 11/01 08 AC 11/05 INH 0900 Melatonin 5 MG AT BEDTIME 11/02 0230 AC 11/04 PO 2146 Nicotine 14 MG DAILY 11/01 1000 AC 11/05 TOP 0415 Oxycodone HCl 10 MG Q6P PRN 10/31 1445 AC PO Oxycodone/ 1 TAB Q6P PRN 10/31 1445 AC Acetaminophen PO Patient Medication 1 ED .STK-MED ONE 11/04 1343 DC Teaching ED 11/04 1344 Prednisone 60 MG DAILY 11/03 1000 DC 11/05 PO 11/05 1001 0924 Vital Signs & I&O Last 24 Hrs of Vitals and I&O: Vital Signs Date Time Temp Pulse Resp B/P Pulse O2 O2 Flow FiO2 Ox Delivery Rate 11/05 0907 96 Nasal 3.0L Cannula 11/05 0834 20 90 Nasal 3.0L Cannula 11/05 0833 20 86 Room Air 11/05 0831 22 88 Room Air 11/05 0830 20 90 Nasal 3.0L Cannula 11/05 0800 90 Nasal 3.0L Cannula 11/05 0742 98.3 89 18 138/94 93 Nasal 3.0L Cannula 11/05 0000 91 Nasal 3.0L Cannula 11/04 2148 97.4 90 18 134/70 91 Nasal 3.0L Cannula 11/04 1640 94 Nasal 3.0L Cannula 11/04 1600 90 Nasal 3.0L Cannula 11/04 1417 97.7 100 18 148/72 90 Nasal 3.0L Cannula Intake & Output 11/05 1600 11/05 0800 11/05 0000 Intake Total 100 870 Output Total 400 600 Balance -300 270 Intake, IV 0 270 Intake, Oral 100 600 Number 1 Bowel Movements Output, Urine 400 600 Exam Other Physical Findings: gen - awake and alert, speaks in full sentences, mild respiratory distress heent - ncat cvs - s1, s2 lungs - scattered inspiratory and expiratory wheezes with forceful exhalation, prolonged end expiratory phase abd - soft, bs+ ext - without edema Results Last 24 Hrs of Lab Results: Laboratory Tests 11/04/16 1358: Troponin I < 0.01 Impression/Plan Impression/Plan Impression/Plan: Impression 61 year old woman - Acute exacerbation of COPD/underlying emphysema accompanied with hypoxemic respiratory failure requiring oxygen supplementation, this is likely secondary to a recent URI/bronchitis illness - pulmonary nodules per patient - ?psoriatic involvement - very low suspicion for VTE - very severe emphysema - reproducible substernal chest pain Plan - steroid taper as ordered - TRC/Nebs, home nebs/neb machine - only albuterol (pt on laba/lama at home) - Zithromax for a duration of 5 days - mucinex - smoking cessation/counseled - DVT prophylaxis at all times
[2016-11-05 13:59] VITALS: BP 138/84
[2016-11-05] MEDS ORDERED: MUCINEX600 M1 PO (15:21)
[2016-11-05] MEDS ORDERED: XANAX0.25 M1 PO ×2 (16:07→16:13)
== END 2016-11-05 17:12 | disposition home health service (06) | DRG 190 ==
LOC: ENRESERVDT → ENRESERVTM → ERH 10:21 → 2NB 13:26 → ERHI 13:26 → ENPENDDIS 13:26 → 2NB 15:02
PROVIDERS: Emergency Medicine; Internal Medicine; Ophthalmology; ADMIT Internal Medicine
DX: J44.0 Chronic obstructive pulmonary disease with (acute) lower respiratory infection (principal); J96.01 Acute respiratory failure with hypoxia; L40.50 Arthropathic psoriasis, unspecified; F17.200 Nicotine dependence, unspecified, uncomplicated; D50.9 Iron deficiency anemia, unspecified; J20.9 Acute bronchitis, unspecified; J44.1 Chronic obstructive pulmonary disease with (acute) exacerbation
CPT/HCPCS: 2NBSP; 82103; 36415; 81001; 82436; 87040; 87449; 87450; 87804; 87804-59; 93005; 93010; 93306; 93970; 96374; 96375; 97116-GO; 97161-GP; 97530-GO; 99291; J0456; J0696; J1650; J2920; J2930; J7060